=== PATIENT | male | born 1935 | race Caucasian/White ===

== ENCOUNTER 2017-03-02 15:15 | Outpatient (CLI) | END 2017-03-02 15:16 | disposition short-term general hospital (02) | LOC: AMBL 15:15 | PROVIDERS: ATTEND Internal Medicine Geriatric Medicine | DX: R50.9 Fever, unspecified (principal); R05 Cough; R06.9 Unspecified abnormalities of breathing; R41.0 Disorientation, unspecified; R40.2411 Glasgow coma scale score 13-15, in the field [EMT or ambulance] ==

== ENCOUNTER 2017-04-11 17:44 | Outpatient (CLI) | END 2017-04-11 17:45 | disposition home or self-care (01) | LOC: NONPT 17:44 | PROVIDERS: ATTEND Emergency Medicine | DX: R68.89 Other general symptoms and signs (principal) | CPT/HCPCS: 87502 ==

== ENCOUNTER 2017-05-08 14:16 | Inpatient (IN) ==
[2017-05-08 14:34] VITALS: BMI 29.7
--- NOTE | 2017-05-08 15:54 | CT ---
EXAM: CT chest without contrast. HISTORY: Cough, fever. COMPARISON: None available. TECHNIQUE: Multiple axial images of the chest were obtained without intravenous contrast. Images we re reformatted in the sagittal and coronal planes. FINDINGS: Left-sided electronic cardiac device is present. Calcified and noncalcified mediastinal l ymph nodes are present most which demonstrate fatty yaya. Evaluation for hilar lymphadenopathy is li mited by lack of intravenous contrast. There has been previous sternotomy. Atherosclerotic calcific ations are present. No pericardial effusion identified. Heart is mildly enlarged. Nodular densities present throughout both lungs with more coalescent consolidation in the left lower lobe and to a lesser extent the right lower lobe. No pleural effusion or pneumothorax. Limited images of the upper abdomen demonstrate cholelithiasis and mild gallbladder distension. Flui d density lesions in both kidneys measure up to 3.2 cm on the right and 6.7 cm on the left. Degenerative changes present throughout the spine as well as in the shoulders. Minimal superior endp late compression deformity of T8 is age indeterminate. IMPRESSION: Bilateral nodular densities with coalescent left greater than right lower lobe consolidation, consist ent with pneumonia. Follow-up CT in 4-6 weeks after appropriate therapy recommended for reassessment .
--- NOTE | 2017-05-08 16:29 | ED.PDOC ---
General ED Provider: Dr. EMILEE IYER Chief Complaint: Fever Stated Complaint: fever , cough Time Seen by Physician: 14:30 Information Source: Fdc, EMT Exam Limitations: No limitations Primary Care Provider: JACQUELINE THOMPSONElvia Nursing and Triage Documentation Reviewed and Agree: Yes Reviewed sepsis parameters & appropriate labs ordered?: Yes System Inflammatory Response Syndrome: Not Applicable Sepsis Protocol: For patient's 13 years and over: Temp is 96.8 and below OR 101 and greater Pulse >90 BPM Resp >20/minute Acutely Altered Mental Status Are patient's symptoms suggestive of a new infection, such as: -Pneumonia -Skin, Soft Tissue -Endocarditis -UTI -Bone, Joint Infection -Implantable Device -Acute Abdominal Infection -Wound Infection -Meningitis -Blood Stream Catheter Infection -Unknown System Inflammatory Response Syndrome: Not Applicable Respiratory Complaint Exam - Respiratory Complaint/Exam Onset/Duration: cough fever x 1 day Symptoms Are: Still present Timing: Intermittent Initial Severity: Moderate Current Severity: Moderate Location: Chest Character: Reports: Productive cough Aggravating: Reports: None Alleviating: Reports: None Associated Signs and Symptoms: Reports: Rapid breathing, Fever, Chills, URI, Nasal congestion. Denies: Dyspnea, Chest pain, Pleuritic chest pain, Wheezing, Hemoptysis, Dizziness, Calf pain, Calf swelling, Edema, Hoarseness, Sinus discomfort, Vomiting, Sore throat, Weight loss, Decreased oral intake, Increased thirst, Increased appetite, Increased urination Related History: Reports: Similar episode History of Healthcare-Acquired Pneumonia: No Related Surgical History: Reports: None Pulmonary Embolism Risk Factors: Bedrest Pseudomonas Risk Factors: Reports: Chronic Lung Disease Tuberculosis Risk Factors: Reports: Communal living, Chronic Resp. Faliure Status Asthmaticus Risk Factors: Reports: None Home Oxygen Use: No Recent Stress Test: No Recent Echo/LV Function: No Current Antibiotic Use: No Current Asthma Medication Use: No Inadequate Respiratory Effort: No Dysphagia Present: No Stridor Present: No JVD Present: No Accessory Muscle Use: No Retractions: Not Present Diminished Breath Sounds: No Sinus Tenderness: None Grunting Respirations: No Differential Diagnoses: CHF, Pulmonary Edema, COPD Exacerbation, Pneumonia, Influenza, Lower Resp. Infection Review of Systems - Review Of Systems Constitutional: Reports: Fever, Malaise Eyes: Reports: No symptoms Ears, Nose, Mouth, Throat: Reports: No symptoms Respiratory: Reports: Cough Cardiac: Reports: No symptoms GI: Reports: No symptoms : Reports: No symptoms Musculoskeletal: Reports: No symptoms Skin: Reports: No symptoms Neurological: Reports: No symptoms Endocrine: Reports: No symptoms Hematologic/Lymphatic: Reports: No symptoms All Other Systems: Reviewed and Negative Past Medical History - Past Medical History Previously Healthy: No Endocrine: Reports: Dyslipidemia Cardiovascular: Reports: Hypertension Respiratory: Reports: COPD Hematological: Reports: None Gastrointestinal: Reports: None Genitourinary: Reports: None Neuro/Psych: Reports: None Musculoskeletal: Reports: None Cancer: Reports: None - Surgical History General Surgical History: Reports: None - Family History Family History: Reports: None - Social History Smoking Status: Unknown if ever smoked Hx Substance Use: Yes Alcohol Screening: None Physical Exam - Physical Exam Appearance: Ill-appearing Ill-appearing: Moderate Pain Distress: Mild Eyes: ANGEL, EOMI, Conjunctiva clear ENT: Ears normal, Nose normal, Dry mucosa Respiratory: Rhonchi Cardiovascular: RRR, Pulses normal, No rub, No murmur GI/: Soft, Nontender, No masses, Bowel sounds normal, No Organomegaly Musculoskeletal: Normal strength, ROM intact, No edema, No calf tenderness Skin: Warm, Dry, Normal color Neurological: Sensation intact, Motor intact, Reflexes intact, Cranial nerves intact, Alert, Oriented Psychiatric: Affect appropriate, Mood appropriate Physician Notification - Case Discussed Physician Notified: pmd Time of Notification: 16:29 Admit To: Inpatient Critical Care Note - Critical Care Note Total Time (mins): 0 Course - Course Hematology/Chemistry: 05/08/17 15:15 Orders, Labs, Meds: Lab Review 05/08/17 05/08/17 14:55 15:15 WBC 8.87 RBC 4.29 L Hgb 11.7 L Hct 35.7 L MCV 83.2 MCH 27.3 MCHC 32.8 RDW Coeff of Juan 15.6 H Plt Count 124 L Immature Gran % (Auto) 0.2 Neut % (Auto) 73.6 Lymph % (Auto) 13.9 [place] % (Auto) 12.0 H Eos % (Auto) 0.0 Baso % (Auto) 0.3 Immature Gran # (Auto) 0.0 Neut # (Auto) 6.5 Lymph # (Auto) 1.2 [place] # (Auto) 1.1 Eos # (Auto) 0.0 Baso # (Auto) 0.0 Influ A Molecular Assay Negative by naat Influ B Molecular Assay Negative by naat Orders Category Date Time Status EKG-(ED ONLY) Stat CARDIO 05/08/17 14:49 Completed ACTIVITY .Complete BR CARE 05/08/17 16:25 Ordered INCISION/WOUND CARE Q6HR CARE 05/08/17 16:25 Ordered INTAKE & OUTPUT Q8HR CARE 05/08/17 16:25 Ordered BLOOD CULTURE (ED ONLY) Stat LAB 05/08/17 15:15 Received CBC W/ AUTO DIFF DAILY@0600 LAB 05/09/17 06:00 Ordered CBC W/ AUTO DIFF DAILY@0600 LAB 05/10/17 06:00 Ordered CBC W/ AUTO DIFF Stat LAB 05/08/17 15:15 Completed COMPREHENSIVE METABOLIC PANEL DAILY@0600 LAB 05/09/17 06:00 Ordered COMPREHENSIVE METABOLIC PANEL DAILY@0600 LAB 05/10/17 06:00 Ordered COMPREHENSIVE METABOLIC PANEL Stat LAB 05/08/17 15:15 Received FLU A/B MOLECULAR Stat LAB 05/08/17 14:55 Completed MOLECULAR GROUP A STREP Stat LAB 05/08/17 14:55 Completed PROCALCITONIN Stat LAB 05/08/17 15:15 Received URINALYSIS C & S IF INDICATED Stat LAB 05/08/17 14:48 Uncollected Acetaminophen [Tylenol] MEDS 05/08/17 16:24 Ordered 650 mg PO Q4H PRN Ceftriaxone Sodium [Rocephin] 1 gm MEDS 05/09/17 09:00 Ordered 0.9 % Sodium Chloride [Sodium Chloride] 50 ml IV DAILY Dronedarone HCl [Multaq] MEDS 05/09/17 09:00 Ordered 400 mg PO DAILY Furosemide [Lasix Tab] MEDS 05/09/17 09:00 Ordered 20 mg PO DAILY Lisinopril [Zestril] MEDS 05/09/17 09:00 Ordered 10 mg PO DAILY Loperamide HCl [Loperamide] MEDS 05/09/17 09:00 Ordered 2 mg PO DAILY Metoprolol Tartrate [Lopressor] MEDS 05/08/17 21:00 Ordered 50 mg PO BID Mupirocin [Bactroban Ointment 1 Gram Applicator (ER)] MEDS 05/08/17 21:00 Ordered 1 gm TP BID Potassium Chloride [Potassium Chloride] MEDS 05/09/17 09:00 Ordered 20 meq PO DAILY Pravastatin Sodium [Pravachol] MEDS 05/09/17 09:00 Ordered 20 mg PO DAILY Sodium Chloride 0.9% [Sodium Chloride] 1,000 ml MEDS 05/08/17 16:30 Ordered IV 75 mls/hr CT CHEST W/O CONTRAST Stat RADS 05/08/17 14:49 Completed Medications Generic Name Dose Route Start Last Admin Trade Name Freq PRN Reason Stop Dose Admin Acetaminophen 650 mg 05/08/17 16:24 Tylenol PO Q4H PRN Fever >101 Furosemide 20 mg 05/09/17 09:00 Lasix Tab PO DAILY [facility] Lisinopril 10 mg 05/09/17 09:00 Zestril PO DAILY [facility] Metoprolol Tartrate 50 mg 05/08/17 21:00 Lopressor PO BID [facility] Mupirocin 1 gm 05/08/17 21:00 Bactroban Ointment 1 Gram Applicator (Er) TP BID MAYELIN Non-Formulary Medication 400 mg 05/09/17 09:00 Dronedarone Hcl [Multaq] PO DAILY MAYELIN Non-Formulary Medication 20 meq 05/09/17 09:00 Potassium Chloride [Potassium Chloride] PO DAILY MAYELIN Non-Formulary Medication 2 mg 05/09/17 09:00 Loperamide Hcl [Loperamide] PO DAILY [facility] Pravastatin Sodium 20 mg 05/09/17 09:00 Pravachol PO DAILY [facility] Vital Signs: Temp Pulse Resp BP Pulse Ox 05/08/17 14:21 100.7 F H 84 20 136/70 96 Departure - Departure Time of Disposition: 16:29 Disposition: ADMITTED INPATIENT Discharge Problem: Fever Pneumonia Qualifiers: Pneumonia type: due to unspecified organism Laterality: right Lung location: lower lobe of lung Qualified Code(s): J18.1 - Lobar pneumonia, unspecified organism Condition: Good Pt referred to PMD for follow-up: Yes IPMP verified?: No Allergies/Adverse Reactions: Allergies Penicillins Adverse Reaction (Verified 05/08/17 15:04) sulfamethoxazole [From Bactrim] Adverse Reaction (Verified 05/08/17 15:04) trimethoprim [From Bactrim] Adverse Reaction (Verified 05/08/17 15:04) Home Medications: Ambulatory Orders Acetaminophen [Tylenol] 650 mg PO Q4H PRN 05/08/17 Donepezil HCl [Aricept] 10 mg PO DAILY 05/08/17 Dronedarone HCl [Multaq] 400 mg PO DAILY 05/08/17 Furosemide [Lasix] 20 mg PO DAILY 05/08/17 Lisinopril [Zestril] 10 mg PO DAILY 05/08/17 Loperamide HCl [Loperamide] 2 mg PO DAILY 05/08/17 Memantine HCl [Namenda] 10 mg PO BID 05/08/17 Metoprolol Tartrate [Lopressor] 50 mg PO BID 05/08/17 Mupirocin [Bactroban Ointment 1 Gram Applicator (ER)] 1 gm TP BID 05/08/17 Potassium Chloride 20 meq PO DAILY 05/08/17 Pravastatin Sodium [Pravachol] 20 mg PO DAILY 05/08/17
[2017-05-08] MEDS ORDERED: ROCEPHIN 1 GM in SODIUM CHLORIDE 50 ML IV STA (16:59)
[2017-05-08] MEDS ORDERED: ROCEPHIN ONE (17:17)
[2017-05-08] MEDS: SODIUM CHLORIDE 1,000 ML IV SCH (17:30)
[2017-05-08] MEDS: TYLENOL PO PRN (22:07)
[2017-05-08] MEDS: LOPRESSOR PO SCH (22:07)
[2017-05-08] MEDS: BACTROBAN TP SCH (22:07)
[2017-05-08] MEDS: DUONEB NEB SCH (22:38)
[2017-05-09] MEDS ORDERED: LASIX IVP STA (02:01)
[2017-05-09] MEDS: DUONEB NEB SCH ×4 (04:36→22:30)
[2017-05-09] MEDS: TYLENOL PO PRN ×2 (05:19→15:00)
[2017-05-09] MEDS: LASIX TAB PO SCH (05:38)
[2017-05-09] MEDS: SODIUM CHLORIDE 1,000 ML IV SCH ×2 (07:37→10:45)
[2017-05-09] MEDS: BACTROBAN TP SCH ×2 (08:42→20:35)
[2017-05-09] MEDS: IMODIUM PO SCH (08:42)
[2017-05-09] MEDS: LOPRESSOR PO SCH ×2 (08:43→20:36)
[2017-05-09] MEDS: ZESTRIL PO SCH (08:43)
[2017-05-09] MEDS: MULTAQ PO SCH (08:43)
[2017-05-09] MEDS: K-DUR PO SCH (08:43)
[2017-05-09] MEDS: PRAVACHOL PO SCH (08:43)
[2017-05-09] MEDS: MUCINEX PO SCH ×2 (08:44→20:36)
[2017-05-09] MEDS: VANCOMYCIN 750 MG in SODIUM CHLORIDE 250 ML IV SCH ×2 (08:44→20:35)
[2017-05-09] MEDS ORDERED: NON-FORMULARY MEDICATION (Loperamide Hcl [Loperamide] 2 MG) PO SCH (09:00)
[2017-05-09] MEDS ORDERED: VANCOMYCIN 1 GM in SODIUM CHLORIDE 250 ML IV SCH (09:00)
[2017-05-09] MEDS ORDERED: ROCEPHIN 1 GM in SODIUM CHLORIDE 50 ML IV SCH (09:00)
[2017-05-09] MEDS ORDERED: DRONEDARONE HCL 400 MG PO SCH (09:00)
[2017-05-09] MEDS ORDERED: NON-FORMULARY MEDICATION (Potassium Chloride [Potassium Chloride] 20 MEQ) PO SCH (09:00)
--- NOTE | 2017-05-09 10:20 | RS.BEDDYS ---
Subjective Number of treatment sessions: 1 Date of Evaluation: 05/09/17 Treatment Diagnosis: pnuemonia Current Level of Function: This 82 year old male presents with Alzheimers and pneumonia. Pt has a hx of swallowing difficulty. Currently, pt has chest congestion and coughing at the bedside. Pt is at risk for aspiration and/or penetration. Current Diet: regular with thin liquids. Current Subjective/complaints:: Pt is a poor historian and cannot answer open- ended questions. When asked yes/no questions he answered inconsistently. Nursing reported pt coughing at the bedside. TECHNICAL SERVICES SPECIALIST noted pt without a productive cough. Medical History Comments:: pneumonia, swallowing difficulty. Patient's Goals: TECHNICAL SERVICES SPECIALIST to place pt on safest and least restrictive diet texture. General Information - General Denture Type: Full- Upper Patient Orientation: Person Ability to Follow Directions: Fair - Voice Voice Quality: Breathy Oral-Facial Assessment - Dental/Labial Lips Comment: No lip movement on command. Adequate labial seal with straw - Lingual Comments: No lingual control on command. - Comments/Additional Info. Comments:: Complete oral-motor examination was not completed due to pt's mental status. Food Presentation - Solids Food Presented: Mechanical Soft (1/2 teaspoon bite) Behaviors/Comments: Emesis of food partially masticated. Pt demonstrates functional oral sensation. Food Presented: Pureed (1 teaspoon.) Behaviors/Comments: Pt had adequate labial seal and clearnace of food texture. Mild-moderate swallow delay. no overt s/s of aspiration. - Liquids Liquid Presented: Thin (via straw) Behaviors/Comments: Overt coughing and wet gurgly voice. Immediate cough and throat clear. Liquid Presented: [place] (via straw) Behaviors/Comments: 1x throat clear. - Recommendations: Dysphagia Evaluation Dietary Recommendations: Dysphagia Pureed, [place]-thick liquids Comments:: Monitor pt with diet texture and liquids. Continue to monitor s/s of aspiration. No thin liquids at the bedside or between meals. Dysphagia Swallow Precautions/Strategies: Sitting Upright (90 deg), Small Bites and Sips, Alternate Liquids/Solids Comments:: Pt to have 1:1 supervision and assistance with feeding. Monitor for increased chest congestion. All medications crushed in pudding/applesauce. - Summary Dysphagia Evaluation Summary: Pt presents with oropharyngeal dysphagia as characterized by moderate delay in swallow initation and moderate difficulty with acceptance of mechanical soft diet texture. Pt at risk for aspiration/ penetration with food and liquids. Further Therapy Indicated?: Yes Comments: Therapy to monitor safest and least restrictive diet texture. Rehab Potential: Fair Functional Reporting G Codes: Swallowing Current CL Goal CK Severity Impairment Rationale: Puree diet texture with nectar thick liquids. Short Term Goals Problem: Swallowing Goal #1: Pt to swallow puree diet without overt s/s of aspiration Goal to be met by: 05/13/17 Problem: Swallow delay Goal #2: 10 trials of lingual thermal/tactile stimulation with 2 second delay Goal to be met by: 05/13/17 Problem: Swallowing Goal #3: No overt s/s of aspiration with 5/5 thin liquid trials. Goal to be met by: 05/13/17 Detention Goals Problem: Swallowing Goal #1: Consume safest and least restrictive diet texture Goal to be met by: 05/13/17 Plan Duration of Treatment: 1 Week Frequency of Treatment: 2-3x week Anticipated Discharge Destination: Detention Care Facility Comments: TECHNICAL SERVICES SPECIALIST recommends a dysphagia swallow study with x-ray to determine safest and least restrictive diet texture. - Treatment Code (1) Oropharyngeal dysphagia Code(s): R13.12 - DYSPHAGIA, OROPHARYNGEAL PHASE
[2017-05-09] MEDS: ARICEPT PO SCH (10:28)
[2017-05-09] MEDS: NAMENDA PO SCH ×2 (10:29→20:36)
[2017-05-09] MEDS: ZOSYN 3.375 GM 3.375 GM in SODIUM CHLORIDE 50 ML IV SCH ×3 (12:08→23:58)
[2017-05-09] MEDS: CALMOSEPTINE OINTMENT TP PRN (20:35)
[2017-05-10] MEDS: TYLENOL PO PRN (02:50)
[2017-05-10] MEDS: CALMOSEPTINE OINTMENT TP PRN ×2 (02:51→18:32)
[2017-05-10] MEDS: SODIUM CHLORIDE 1,000 ML IV SCH ×2 (02:59→10:50)
[2017-05-10] MEDS: DUONEB NEB SCH ×4 (04:33→23:35)
[2017-05-10] MEDS: LASIX TAB PO SCH (05:51)
[2017-05-10] MEDS: ZOSYN 3.375 GM 3.375 GM in SODIUM CHLORIDE 50 ML IV SCH ×4 (05:51→23:05)
--- NOTE | 2017-05-10 09:00 | HP ---
DATE OF SERVICE: 05/08/17 CHIEF COMPLAINT: Fever, chills, cough and congestion. HISTORY OF PRESENT ILLNESS: This is an 82-year-old male with history of stroke, bedridden, Alzheimer's dementia, no stroke only dementia and bedridden with generalized weakness. He was at the long term and began having fever, cough and congestion. Fever went up to 103. I was called and the patient was transferred to [facility] for evaluation. Temperature in the emergency room was 100.7, white count normal. BUN 22, creatinine 1.35. CT of the chest showed bibasilar pneumonia. At that time, the patient was admitted to the hospital for IV antibiotics, breathing treatments and IV fluids. REVIEW OF SYSTEMS: CONSTITUTIONAL: Weakness, tiredness. No fever, no chills. HEENT: Normal. ENDOCRINE: No weight gain; no weight loss. CVS: No chest pain. No PND, no orthopnea. Shortness of breath. No PND, no orthopnea. RESPIRATORY: Cough and congestion. No hemoptysis. GI: No nausea, no vomiting. No abdominal pain. No melena. : No hematuria. No polyuria. MUSCULOSKELETAL: No joint swelling. PSYCHIATRIC: Not anxious. No depression. No suicidal thoughts. No homicidal thoughts. SKIN: Intact, no open lesions. PAST MEDICAL HISTORY: Atrial fibrillation CHF Permanent pacemaker Hypertension Leg edema Alzheimer's dementia COPD Osteoarthritis DJD spine PAST SURGICAL HISTORY: None PERSONAL HISTORY: Dependent upon ADLS. Lives at long term. FAMILY HISTORY: Significant for hypertension. MEDICATIONS: ([facility]) Pravastatin Potassium Namenda Multaq Loperamide Zestril Lasix Aricept Lopressor Bactroban ointment ALLERGIES: PENICILLIN, BACTRIM, TRIMETHOPRIM PHYSICAL EXAMINATION: V/S: BP 136/70, respiratory rate 20, heart rate 84, temperature 97, temperature 100.7, saturation 96. GENERAL: The patient is a sick looking male, lying in bed in no distress. HEENT: Atraumatic, normocephalic. No scleral icterus. Pallor positive. Mucosa dry. NECK: Supple. No JVD, no bruit. No lymphadenopathy. No thyromegaly. HEART: S1, S2 normal. No murmur. No cyanosis or clubbing. No ascites. LUNGS: Basilar crackles. No rales or rhonchi. ABDOMEN: Soft, nontender. Bowel sounds are active. No CVA tenderness. No rigidity or guarding. EXTREMITIES: No pedal edema. No cyanosis or clubbing MUSCULOSKELETAL: Normal joints, no swelling. NEUROLOGIC: The patient is very hard of hearing. Stiffness in the lower and upper extremity but did not test motor strength. SKIN: Intact; no open lesions. LYMPHATIC: No lymph nodes palpable. LABS: Sodium 142, potassium 4.1, chloride 106, bicarb 21, BUN 22, creatinine 1.35. White count 8.87, hemoglobin 11.7, hematocrit 35.1, platelet count 124. ASSESSMENT: 1. PNEUMONIA 2. FEVER SECONDARY TO BASILAR PNEUMONIA 3. ANEMIA 4. HYPERTENSION 5. ATRIAL FIBRILLATION 6. CHF 7. ALZHEIMER'S DEMENTIA PLAN: 1. Admit patient to the regular floor 2. CBC, CMP today and daily 3. Cardiac enzymes and troponin 4. IV fluids 5. Rocephin 1 gm daily 6. Duonebs 7. Vancomycin 8. Daily I & O's TIME SPENT: MORE THAN 75 minutes for admission [facility]
[2017-05-10] MEDS: VANCOMYCIN 750 MG in SODIUM CHLORIDE 250 ML IV SCH ×2 (09:52→20:41)
[2017-05-10] MEDS: ARICEPT PO SCH (09:52)
[2017-05-10] MEDS: MULTAQ PO SCH (09:52)
[2017-05-10] MEDS: IMODIUM PO SCH (09:53)
[2017-05-10] MEDS: LOPRESSOR PO SCH ×2 (09:53→20:41)
[2017-05-10] MEDS: NAMENDA PO SCH ×2 (09:53→20:42)
[2017-05-10] MEDS: MUCINEX PO SCH ×2 (09:53→20:42)
[2017-05-10] MEDS: K-DUR PO SCH (09:53)
[2017-05-10] MEDS: BACTROBAN TP SCH ×2 (09:54→20:41)
[2017-05-10] MEDS: PRAVACHOL PO SCH (09:54)
[2017-05-10] MEDS: ZESTRIL PO SCH (09:54)
--- NOTE | 2017-05-10 13:50 | DI ---
EXAM: Modified barium swallow. History: Difficulty swallowing, choking Technique: Lateral video fluoroscopy was performed in conjunction with speech therapy using multiple consistencies to evaluate swallowing function. Findings / impression: Aspiration was observed with thin liquids and patient demonstrated coughing a fter the aspiration. There was probably aspiration with the other more solid consistencies. Please s ee dedicated speech pathology report for additional details.
--- NOTE | 2017-05-10 14:20 | CT ---
EXAM: CT of the abdomen pelvis without contrast History: Abdominal pain. Comparison: Chest CT 05/08/2017 Technique: Multiplanar CT images through the abdomen pelvis were obtained without the administration of IV contrast Findings: Bibasilar consolidation and worse in the left lower lobe. Coronary calcifications and mild cardiomegaly. No acute osseous abnormalities. Ankylosing spondylitis of the spine and sacroiliac elda ints. Cholelithiasis. Atherosclerotic vascular calcifications. No focal liver or splenic lesions. No antony l stones and no hydronephrosis. Bilateral renal cysts measuring up to 3 cm on the right and 6 cm on the left. No peripancreatic inflammation. Adrenal glands are unremarkable. No bowel obstruction. 9 mm hyperdensity within the bladder near the right UVJ. Prostatic seeds. There is fluid seen withi n the rectosigmoid colon. No perirectal inflammation. No free air and no ascites. No lymphadenopat hy. Impression: 1. Cholelithiasis. 2. 9 mm hyperdensity within the bladder near the right UVJ could represent a bladder stone versus foc us of intraluminal bladder hemorrhage. 3. Bilateral renal cysts. 4. Bibasilar pneumonia.
--- NOTE | 2017-05-10 15:39 | RS.MODBRM ---
Subjective Number of treatment sessions: 1 Date of Evaluation: 05/10/17 Treatment Diagnosis: pneumonia, swallowing difficulty Current Level of Function: This 82 year old male presents with advanced Alzheimers disease. At time of the MBSS, pt was lethargic. Pt has a hx of swallowing difficulty and pneumonia. Pt was on a puree diet texture with nectar thick liquids. Pt's family reported sips of thin liquids between meals had been administered. Pt has a high risk for aspiration/penetration with thin liquids due to overt coughing at the bedside. Current Diet: Puree diet with nectar thick liquids. Medications crushed in applesauce/pudding. Current Subjective/complaints:: Pt did not verbalize any symptoms of pain, however pt was moaning and stating "stop" when SQL SERVER CONSULTANT and x-ray tech postioned pt in dysphagia chair. Pt did not locate pain when asked, however pain signs were noted with furrowed eye brows and flinching, as well as verbal moaning when pt was positioned in an upright sitting chair. SQL SERVER CONSULTANT also noted pt with pale complexion, which was compared to his complexion yesterday this date. Pt was also hot to touch, indicating possible fever. Medical History Comments:: Pneumonia and difficulty swallowing. Food Presented Thin Liquid: spoon (1/2 teaspoon. Premature spillage to valleculae, over tip of valleculae, and pyriform sinuses. Aspiration pre-swallow with immediate cough response and during swallow. 1 minute active coughing/recovery period.) [place] Liquid: spoon (1/2 teaspoon. Immediately feel to valleculae and over tip to UES opening. Pooled at UES with no swallow response. Tactile stimulation provided on laryngeal area and BOT, which did not initiate swallow response. Liquids trailed to laryngeal vestibule and penetrated with initiation of swallow. Pt inhaled deeply and then aspirated. Overt coughing response to aspiration with 2 minute active recovery.) Honey Liquid: spoon (3/4 teaspoon. Poor control with BOT, premature spillage to valleculae, over tip, to pyriform sinuses and initiation of swallow was noted. residuals into laryngeal vestibule and penetration with initiation of first swallow. Aspiration post swallow on residuals in valleculae and laryngeal vesibules. Overt coughing with aspiration and 1-2 minute recovery period.) Oral Phase - Oral Phase Labial Closure: WFL Bolus Formation: Mild Impairment Lingual Movement: Moderate Impairment A/P Propulsion: Severe Impairment Premature Vallecular Pooling: Moderate Oral Residue: Mild Comments:: Poor control with A-P transfer and BOT. All liquid consistencies with premature spillage to valleculae, over tip of valleculae, pyriform sinuses. Pharyngeal Phase Pharyngeal Response: Moderate Impairment Base of Tongue: Severe Impairment Epiglottic Movement: Severe Impairment Laryngeal Excursion: Moderate Impairment Vallecular Residue: Moderate Pyriform Residue: Moderate Comments:: Pharyngeal phase with severe difficulty with BOT control, however BOT with adequate movement to pharyngeal wall. Epiglottic inversion minimal to no movement. Resulting in moderate-severe residuals in valleculae with nectar thick and honey thick liquids. Pt with penetration pre-swallow on nectar thick and honey thick liquids. Pt with aspiration on nectar thick and honey thick liquids during swallow initiation and post swallow. Initiation of swallow response with moderate-severe delay of 3-8 seconds. Pt with 8 second delay with initiation of a swallow in response to nectar thick trial. Summary and Recommendations - Recommendations PO Diet: Pureed, Pudding-Thick Liquids Comments:: SQL SERVER CONSULTANT did not observe pt with puree diet texture or pudding consistency under x-ray. This was due to patient aspirating thin, nectar, and honey thick consistencies and demonstrating difficulty with recovering from coughing. Pt appeared fatigued as well, and SQL SERVER CONSULTANT did not want to continue anything PO at that time. Pt presents with severe oropharyngeal dysphagia as characterized by BOT control, epiglottic inversion, laryngeal excursion, delay in swallow initiation, poor swallow response with moderate residuals, and penetration/aspiration on thin, nectar, and honey thick liquid consistencies. Pt demonstrated adequate sensation to aspiration with overt coughing. SQL SERVER CONSULTANT recommends pt NPO at this time, due to risk for aspiration on residuals in laryngeal structures. Further Therapy Indicated?: Yes Functional Reporting G Codes: Swallowing current CM Goal CL Severity Impairment Rationale: Puree diet with pudding thick liquids. Aspiration Short Term Goals Problem: Swallowing Goal #1: Pt to swallow puree diet without overt s/s of aspiration Goal to be met by: 05/20/17 Problem: Swallow delay Goal #2: 10 trials of lingual thermal/tactile stimulation with 2-3 second delay Goal to be met by: 05/20/17 Problem: Swallowing Goal #3: No overt s/s of aspiration with 5/5 honey-thick liquid trials. Goal to be met by: 05/20/17 [facility] Goals Problem: Swallowing Goal #1: PO consumption without increased chest congestion. Goal to be met by: 05/20/17 Plan Duration of Treatment: 1 Week Frequency of Treatment: 1-2x aweek Anticipated Discharge Destination: [facility] Comments: Pt with high risk for aspiration/penetration with anything PO due to mentation and awareness of swallow initiation. When pt was alert at the bedside , swallow response was faster, however pt still demonstrated overt s/s of aspiration with all textures presented. SQL SERVER CONSULTANT provided recommendations to MD. ACEVEDO to discuss PO options and nutritional status with family members. - Treatment Code (1) Oropharyngeal dysphagia Code(s): R13.12 - DYSPHAGIA, OROPHARYNGEAL PHASE
[2017-05-10] MEDS ORDERED: DECADRON 4 MG/ML SDV IVP STA (16:57)
[2017-05-10] MEDS ORDERED: TYLENOL RC PRN ×2 (18:06→18:38)
[2017-05-10] MEDS ORDERED: TYLENOL RC ONE ×2 (18:08→18:12)
[2017-05-11] MEDS: DUONEB NEB SCH ×4 (05:20→23:30)
[2017-05-11] MEDS: LASIX TAB PO SCH (05:41)
[2017-05-11] MEDS: ZOSYN 3.375 GM 3.375 GM in SODIUM CHLORIDE 50 ML IV SCH ×4 (05:41→23:20)
[2017-05-11] MEDS: CALMOSEPTINE OINTMENT TP PRN (10:26)
[2017-05-11] MEDS: BACTROBAN TP SCH ×2 (10:27→20:21)
[2017-05-11] MEDS: K-DUR PO SCH (10:27)
[2017-05-11] MEDS: ARICEPT PO SCH (10:27)
[2017-05-11] MEDS: IMODIUM PO SCH (10:27)
[2017-05-11] MEDS: PRAVACHOL PO SCH (10:28)
[2017-05-11] MEDS: VANCOMYCIN 750 MG in SODIUM CHLORIDE 250 ML IV SCH ×2 (10:28→20:22)
[2017-05-11] MEDS: LOPRESSOR PO SCH ×2 (10:28→20:21)
[2017-05-11] MEDS: NAMENDA PO SCH ×2 (10:28→20:22)
[2017-05-11] MEDS: MULTAQ PO SCH (10:28)
[2017-05-11] MEDS: MUCINEX PO SCH ×2 (10:28→20:22)
[2017-05-11] MEDS: ZESTRIL PO SCH (10:29)
[2017-05-11] MEDS: SODIUM CHLORIDE 1,000 ML IV SCH (18:15)
[2017-05-12] MEDS: ZOSYN 3.375 GM 3.375 GM in SODIUM CHLORIDE 50 ML IV SCH ×4 (05:23→23:03)
[2017-05-12] MEDS: LASIX TAB PO SCH (05:30)
[2017-05-12] MEDS: DUONEB NEB SCH ×4 (06:00→23:10)
[2017-05-12] MEDS: VANCOMYCIN 750 MG in SODIUM CHLORIDE 250 ML IV SCH ×2 (09:53→21:11)
[2017-05-12] MEDS: IMODIUM PO SCH (09:54)
[2017-05-12] MEDS: K-DUR PO SCH (09:54)
[2017-05-12] MEDS: BACTROBAN TP SCH ×2 (09:54→21:10)
[2017-05-12] MEDS: ARICEPT PO SCH (09:54)
[2017-05-12] MEDS: NAMENDA PO SCH ×2 (09:55→21:11)
[2017-05-12] MEDS: MULTAQ PO SCH (09:55)
[2017-05-12] MEDS: LOPRESSOR PO SCH ×2 (09:55→21:10)
[2017-05-12] MEDS: MUCINEX PO SCH ×2 (09:55→21:10)
[2017-05-12] MEDS: PRAVACHOL PO SCH (09:56)
[2017-05-12] MEDS: ZESTRIL PO SCH (09:57)
[2017-05-12] MEDS: CALMOSEPTINE OINTMENT TP PRN (21:10)
[2017-05-12] MEDS: SODIUM CHLORIDE 1,000 ML IV SCH (21:11)
[2017-05-13] MEDS: DUONEB NEB SCH ×4 (04:55→23:30)
[2017-05-13] MEDS: ZOSYN 3.375 GM 3.375 GM in SODIUM CHLORIDE 50 ML IV SCH ×4 (05:43→23:26)
[2017-05-13] MEDS: LASIX TAB PO SCH (05:43)
[2017-05-13] MEDS: BACTROBAN TP SCH ×2 (10:09→21:17)
[2017-05-13] MEDS: VANCOMYCIN 750 MG in SODIUM CHLORIDE 250 ML IV SCH ×2 (10:09→21:17)
[2017-05-13] MEDS: CALMOSEPTINE OINTMENT TP PRN (10:10)
[2017-05-13] MEDS: IMODIUM PO SCH (10:10)
[2017-05-13] MEDS: ARICEPT PO SCH (10:10)
[2017-05-13] MEDS: K-DUR PO SCH (10:11)
[2017-05-13] MEDS: MULTAQ PO SCH (10:11)
[2017-05-13] MEDS: MUCINEX PO SCH ×2 (10:11→21:23)
[2017-05-13] MEDS: LOPRESSOR PO SCH ×2 (10:11→21:23)
[2017-05-13] MEDS: PRAVACHOL PO SCH (10:11)
[2017-05-13] MEDS: NAMENDA PO SCH ×2 (10:11→21:23)
[2017-05-13] MEDS: ZESTRIL PO SCH (10:12)
--- NOTE | 2017-05-13 15:04 | RS.DYSPHTX ---
Dysphagia Treatment Note Date of Note: 05/13/17 Visit #: 2 Time of Treatment: 11:45 Subjective: Pt asleep in bed mouth breathing. Severely dry oral cavity with dried blood on lingual tip. Upper dentures in place with residue noted. Pt with incoherent verbalizations. No appropriate responses. Pt cooperative and participated with PHYSICAL MEDICINE SPECIALIST when music and tactile stimulation was provided. PHYSICAL MEDICINE SPECIALIST did not observe congested breath sounds and cough was noted with less congestion. No producitve coughs observed, however pt with strong cough reflex. Total treatment time: 25 - Short Term Goals Goal #1: Pt to swallow puree diet without overt s/s of aspiration Activity/Accuracy: PHYSICAL MEDICINE SPECIALIST presented 1/4 teaspoon puree texture. No swallow initiation completed with max tactile stimulation and cues provided. Pt with gurgly vocal quality noted post trial. No other trials presented. Goal #2: 10 trials of lingual thermal/tactile stimulation with 2-3 second delay Activity/Accuracy: 5 trials of labial ice chip stimulation with labial rounding noted. Lingual stimulation with ice chip with 2/5 trials swallow initiation. Immediate overt cough on all trials. Goal #3: No overt s/s of aspiration with 5/5 honey-thick liquid trials. Activity/Accuracy: N/a - Padder Goals Goal #1: PO consumption without increased chest congestion. Assessment: PHYSICAL MEDICINE SPECIALIST noted pt with poor oral hygiene since last visit. Nursing was notified to increase oral hygiene and oral stimulation. Poor verbal responses to questions and decreased participation in following commands. PHYSICAL MEDICINE SPECIALIST utilized techniques to increase awareness to situation and increase oral awareness to initiate a swallow response. Pt noted with swallow response 3x during session. When given puree trial, no swallow response was initiated. PHYSICAL MEDICINE SPECIALIST does not recommend anything PO without PHYSICAL MEDICINE SPECIALIST to feed pt and use techniques to initate a swallow response. Pt with limited awareness to safely swallow, as well as, decreased oral awareness to initiate a swallow. PHYSICAL MEDICINE SPECIALIST utilized pulse oximetry during trials. No significant changes with O2 sats when coughing noted. Lung sounds monitored pre and post PO trials and RN reported left side more diminished, no crackles or wheezing noted. - Units Charged Swallowing Therapy: 2 - Plan Comments: PHYSICAL MEDICINE SPECIALIST to continue trials with PO. Consult with MD about nutritional needs and PO recommendations. Discuss PO safety with family.
--- NOTE | 2017-05-13 15:12 | RS.DYSPHTX ---
Dysphagia Treatment Note Date of Note: 05/13/17 Visit #: 3 Time of Treatment: 01:45 Subjective: Pt alert sitting up in bed. Pt verbalizing with some coherent words and 2-3 word utterances. No appropriate responses to questions. Pt opened oral cavity on command, completed labial seal around toothettes and oral swabs, and demonstrated labial rounding with ice chip stimulation. Dentures had been removed and oral cavity was clean. However moderate dry skin on inside of lips, which pt winced and moaned in response to toothette stimulation. Total treatment time: 30 - Short Term Goals Goal #1: Pt to swallow puree diet without overt s/s of aspiration Activity/Accuracy: No puree trials this session. Goal #2: 10 trials of lingual thermal/tactile stimulation with 2-3 second delay Activity/Accuracy: 10/10 trials of lingual and labial thermal/sour stimulation completed. Pt had swallow response on 4/10 trials given max cues. Pt had cough with all ice chip stimulation due to no swallow response. Pt's strength includes strong cough reflex. Goal #3: No overt s/s of aspiration with 5/5 honey-thick liquid trials. Activity/Accuracy: 2/2 trials of honey-thick liquids presented. First trial pt with 5 second swallow delay, improvement since last session with 8 second swallow delay. Pt's O2 sats dropped from 99-94. No coughing with first trial, 2x swallow, and minimal vocal quality change. Second trial pt had audible swallow 3x immediate multiple swallows and delayed cough. O2 sats dropped for 97 -94. No auble wheezing or vocal quality change noted. - Technical Sales Manager Goals Goal #1: PO consumption without increased chest congestion. Assessment: SUBGRADE TESTER assessed pt with increased awareness and response to oral stimulation. However, multiple overt s/s of aspiration were noted. Pt does demonstrate a strong cough reflex. Pt still not safe to consume any PO without skilled ST due to multiple overt s/s of aspiration. - Units Charged Swallowing Therapy: 2 - Plan Comments: Continue to monitor lung sounds and complete strict oral care frequently to stimulate swallow response.
--- NOTE | 2017-05-13 16:55 | DI ---
EXAM: Chest one view, frontal view only. HISTORY: Cough. Choking. COMPARISON: CT 05/08/2017. FINDINGS: Left-sided pacemaker again noted along with median sternotomy wires. Cardiac silhouette i s enlarged. There is no vascular congestion. Left basilar consolidation and right perihilar consoli dation are noted with reticulonodular opacities and peribronchial thickening noted throughout the rem ainder of the lungs, probably not significantly changed from prior chest CT. No pleural effusion or pneumothorax identified. No acute osseous abnormalities seen. IMPRESSION: Stable bilateral pneumonia. Continued follow-up is recommended.
[2017-05-14] MEDS: SODIUM CHLORIDE 1,000 ML IV SCH ×2 (05:28→15:26)
[2017-05-14] MEDS: ZOSYN 3.375 GM 3.375 GM in SODIUM CHLORIDE 50 ML IV SCH ×4 (05:29→23:14)
[2017-05-14] MEDS: LASIX TAB PO SCH (05:29)
[2017-05-14] MEDS: DUONEB NEB SCH ×4 (05:35→22:16)
[2017-05-14] MEDS: IMODIUM PO SCH (09:16)
[2017-05-14] MEDS: K-DUR PO SCH (09:16)
[2017-05-14] MEDS: PRAVACHOL PO SCH (09:16)
[2017-05-14] MEDS: NAMENDA PO SCH ×2 (09:16→20:29)
[2017-05-14] MEDS: MULTAQ PO SCH (09:16)
[2017-05-14] MEDS: ARICEPT PO SCH (09:16)
[2017-05-14] MEDS: MUCINEX PO SCH ×2 (09:16→20:29)
[2017-05-14] MEDS: LOPRESSOR PO SCH ×2 (09:16→20:29)
[2017-05-14] MEDS: ZESTRIL PO SCH (09:17)
[2017-05-14] MEDS: BACTROBAN TP SCH ×2 (09:19→20:28)
[2017-05-14] MEDS: VANCOMYCIN 750 MG in SODIUM CHLORIDE 250 ML IV SCH (09:19)
--- NOTE | 2017-05-14 16:51 | DI ---
EXAM: Chest one view HISTORY: Nasogastric tube placement COMPARISON: 05/13/2017 TECHNIQUE: Single view of the chest was performed FINDINGS: Nasogastric tube terminates in the stomach. Left-sided cardiac pacer. Heart is enlarged, unchanged. Mediastinal contour unchanged. No visible pneumothorax. Bilateral infiltrates, similar to mildly improved. IMPRESSION: 1. Nasogastric tube terminates in the stomach. 2. Bilateral infiltrates, similar to mildly improved 3. Cardiomegaly.
[2017-05-14] MEDS: VANCOMYCIN 500 MG in SODIUM CHLORIDE 100 ML IV SCH (20:28)
[2017-05-14] MEDS ORDERED: ATIVAN IVP STA (22:57)
[2017-05-15] MEDS: ATIVAN IVP PRN (02:00)
--- NOTE | 2017-05-15 02:27 | DI ---
Exam: Chest one-view History: Endogastric tube placement Findings / impression: Compared with 05/14/2017. Endogastric tube has been retracted somewhat with the tip still in the stomach but the proximal port just above the gastroesophageal junction level. N o developing pulmonary opacities.
[2017-05-15] MEDS: DUONEB NEB SCH ×4 (04:36→20:00)
[2017-05-15] MEDS: ZOSYN 3.375 GM 3.375 GM in SODIUM CHLORIDE 50 ML IV SCH ×4 (05:02→23:09)
--- NOTE | 2017-05-15 06:59 | PN ---
DATE OF SERVICE: 05/09/17 SUBJECTIVE: The patient is admitted with dehydration, hypertension. The patient's blood pressure is still 90/52, eating good. He is having some dizzy episodes otherwise no chest pain no PND, no orthopnea. REVIEW OF SYSTEMS: CONSTITUTIONAL: Weakness, tiredness. No fever, no chills. HEENT: Normal. ENDOCRINE: No weight gain, no weight loss. CVS: No angina symptoms. No CHF symptoms. No palpitations. No atypical chest pain for CAD. No shortness of breath. No PND, no orthopnea. RESPIRATORY: No cough, no hemoptysis. GI: Appetite is good. No diarrhea. No nausea, no vomiting. No abdominal pain. : No hematuria. No polyuria. SENIOR TRAINER: Dizziness, lightheadedness. MUSCULOSKELETAL: No joint swelling. PSYCHIATRIC: Not anxious. No depression. No suicidal thoughts. No homicidal thoughts. SKIN: Intact. No rash. PHYSICAL EXAMINATION: V/S: BP 90/52, respiratory rate 12, heart rate 50, temperature 97.6, saturation 95%. HEENT: Normocephalic, atraumatic. Mucosa dry. Pallor positive. No icterus. NECK: Supple. No JVD, no carotid bruit. No lymphadenopathy. LUNGS: Bilateral entry is decreased and clear to auscultation. No rales or rhonchi. HEART: S1, S2 normal. No S3. No murmur, gallop or regurgitation. ABDOMEN: Soft, nontender. Bowel sounds active. No rigidity. No rebound or guarding. No CVA tenderness. EXTREMITIES: No pedal edema. No clubbing or cyanosis MUSCULOSKELETAL: No joint swelling. NEUROLOGIC: Awake, alert. No focal deficit. LYMPHATIC: No lymph nodes palpable. SKIN: Intact. LABS: White count 6.19, hemoglobin 10.8, hematocrit 32.0, platelet count 195. Sodium 139, potassium 4.0, chloride 105, bicarb 24, BUN 20, creatinine 1.04, glucose 137. Iron level 24. Stool for occult blood test negative. Valproic acid level is 13. ASSESSMENT: 1. DEHYDRATION 2. GASTROENTERITIS 3. COPD 4. HYPERTENSION 5. NEUROPATHY 6. CVA 7. BIPOLAR DISORDER 8. ARTHRITIS 9. CHRONIC NECK AND BACK PAIN 10. DIVERTICULOSIS PLAN: 1. Continue Duonebs 2. IV fluids 3. Regular diet 4. Continue holding blood pressure medication TIME SPENT: More than 35 minutes MTDD
--- NOTE | 2017-05-15 07:08 | PN ---
DATE OF SERVICE: 05/10/17 SUBJECTIVE: The patient is still coughing, congested, unable to bring up any phlegm. He responds only minimally. He does not verbalize clearly and goes back to sleep. The patient is to be evaluated by the speech therapist. He still has fever and chills. Fever at the highest last night was 102.9 then 100.4. REVIEW OF SYSTEMS: CONSTITUTIONAL: Positive for fever and chills. HEENT: Normal. ENDOCRINE: No weight gain, no weight loss. CVS: No angina symptoms. No CHF symptoms. No palpitations. No atypical chest pain for CAD. No shortness of breath. No PND, no orthopnea. RESPIRATORY: Cough and congestion. No hemoptysis. GI: No nausea, no vomiting. No abdominal pain. : No hematuria. No polyuria. MUSCULOSKELETAL: No joint swelling. PSYCHIATRIC: Not anxious. No depression. No suicidal thoughts. No homicidal thoughts. SKIN: Intact. No rash. PHYSICAL EXAMINATION: V/S: BP 126/71, respiratory rate 12, heart rate 100, temperature 98.2, saturation 96. HEENT: Normocephalic, atraumatic. Mucosa dry, pallor positive. No icterus. NECK: Supple. No JVD, no carotid bruit. No lymphadenopathy. LUNGS: Decreased basilar crackles. HEART: S1, S2 normal. No S3. No murmur, gallop or regurgitation. ABDOMEN: Soft, nontender. Bowel sounds active. No rigidity. No rebound or guarding. No CVA tenderness. EXTREMITIES: No pedal edema. No clubbing or cyanosis. Right heel has a wound. MUSCULOSKELETAL: No joint swelling. NEUROLOGIC: Awake, alert, not oriented to time, place or person. No focal deficit. LYMPHATIC: No lymph nodes palpable. SKIN: Intact. LABS: White count 5.46, hemoglobin 10.4, hematocrit 31.8, platelet count 109. Sodium 142, potassium 4.8, chloride 110, bicarb 20, BUN 26, creatinine 1.30, glucose 112. ASSESSMENT: 1. BIBASILAR PNEUMONIA, COMMUNITY ACQUIRED PNEUMONIA 2. DIFFICULTY SWALLOWING, WILL DO SWALLOW EVALUATION 3. GENERALIZED WEAKNESS 4. VERY HARD OF HEARING 5. HYPERTENSION 6. CAD 7. CHF 8. PERMANENT PACEMAKER 9. ALZHEIMER'S DEMENTIA 10. ATRIAL FIBRILLATION NOT ON ANY BLOOD THINNERS PLAN: 1. Continue Zosyn 2. Continue Vancomycin 3. IV fluids 4. Duonebs 5. Will give 1 cc Decadron today TIME SPENT: More than 35 minutes MTDD
--- NOTE | 2017-05-15 09:07 | PN ---
DATE OF SERVICE: 05/11/17 SUBJECTIVE: The patient is admitted with bilateral basilar pneumonia, facility acquired pneumonia. He is still coughing with congestion. He did have swallow evaluation , was aspirating so questionable aspiration pneumonia is also there. REVIEW OF SYSTEMS: CONSTITUTIONAL: No fever, no chills. HEENT: Normal. ENDOCRINE: No weight gain, no weight loss. CVS: No angina symptoms. No CHF symptoms. No palpitations. No atypical chest pain for CAD. No shortness of breath. No PND, no orthopnea. RESPIRATORY: Cough and congestion. No hemoptysis. GI: No nausea, no vomiting. No abdominal pain. : No hematuria. No polyuria. MUSCULOSKELETAL: No joint swelling. PSYCHIATRIC: Not anxious. No depression. No suicidal thoughts. No homicidal thoughts. SKIN: Intact. No rash. PHYSICAL EXAMINATION: GENERAL: The patient is lying in bed, not in any distress. V/S: BP 102/56, respiratory rate 99, heart rate 24, temperature 98.4, saturation 99 on 2L. HEENT: Normocephalic, atraumatic. Mucosa dry. Pallor positive. NECK: Supple. No JVD, no carotid bruit. No lymphadenopathy. LUNGS: Diffuse basilar crackles and expiratory crackles. HEART: S1, S2 normal. No S3. No murmur, gallop or regurgitation. ABDOMEN: Soft, nontender. Bowel sounds active. No rigidity. No rebound or guarding. No CVA tenderness. EXTREMITIES: No pedal edema. No clubbing or cyanosis. Right heel wound is present which has been taken care of. MUSCULOSKELETAL: No joint swelling. NEUROLOGIC: Awake, alert, does not communicate much. No focal deficit. LYMPHATIC: No lymph nodes palpable. SKIN: Intact. LABS: White count 5.46, hemoglobin 10.4, hematocrit 31.8, platelet count 109. Sodium 142, potassium 3.8, chloride 110, bicarb 20, BUN 26, creatinine 1.30, glucose 112. ASSESSMENT: 1. BIBASILAR PNEUMONIA, FACILITY ACQUIRED 2. RIGHT HEEL ULCER 3. DEMENTIA 4. ANEMIA 5. EDEMA 6. ATRIAL FIBRILLATION NOT ON BLOOD THINNERS BECAUSE OF FREQUENT AND RECURRENT FALLS 7. CHF 8. CAD PLAN: 1. Continue Multag 2. Continue Zosyn 3. Vancomycin 4. IV fluids at 40 mL/hr 5. Duonebs TIME SPENT: More than 35 minutes MTDD
--- NOTE | 2017-05-15 09:21 | PN ---
DATE OF SERVICE: 05/12/17 SUBJECTIVE: The patient verbalizes but cannot comprehend or understand clearly. He is still coughing even with small liquid feedings. The patient is NPO now. Will discuss issue with the family. Congestion is present. No fever, no chills. No PND, no orthopnea. REVIEW OF SYSTEMS: CONSTITUTIONAL: No fever, no chills. HEENT: Normal. ENDOCRINE: No weight gain, no weight loss. CVS: No angina symptoms. No CHF symptoms. No palpitations. No atypical chest pain for CAD. No shortness of breath. No PND, no orthopnea. RESPIRATORY: Cough and congestion. GI: No nausea, no vomiting. No abdominal pain. : No hematuria. No polyuria. MUSCULOSKELETAL: No joint swelling. PSYCHIATRIC: Not anxious. No depression. No suicidal thoughts. No homicidal thoughts. SKIN: Right heel ulcer. PHYSICAL EXAMINATION: V/S: BP 126/69, respiratory rate 16, heart rate 69, temperature 98.4. Saturation 99 on room air. HEENT: Normocephalic, atraumatic. Mucosa dry. Pallor positive. No icterus. NECK: Supple. No JVD, no carotid bruit. No lymphadenopathy. LUNGS: Decreased basilar crackles. Clear to auscultation. No rales or rhonchi. HEART: S1, S2 normal. No S3. No murmur, gallop or regurgitation. ABDOMEN: Soft, nontender. Bowel sounds active. No rigidity. No rebound or guarding. No CVA tenderness. EXTREMITIES: No pedal edema. No clubbing or cyanosis. Right heel ulcer is present. MUSCULOSKELETAL: No joint swelling. NEUROLOGIC: Awake, alert; does not communicate much. No focal deficit. LYMPHATIC: No lymph nodes palpable. SKIN: Intact. LABS: White count 5.46, hemoglobin 10.4, hematocrit 31.8, platelet count 109. Sodium 142, potassium 3.8, chloride 110, bicarb 20, BUN 26, creatinine 1.30, glucose 112. ASSESSMENT: 1. Bibasilar pneumonia, aspiration pneumonia 2. Right heel ulcer 3. Atrial fibrillation, not on any blood thinner because of the frequent falls 4. CAD 5. CHF 6. Alzheimer's dementia PLAN: 1. Continue Zosyn and Vancomycin 2. IV fluids 3. Duonebs TIME SPENT: More than 35 minutes MTDD
--- NOTE | 2017-05-15 09:33 | PN ---
DATE OF SERVICE: 05/13/17 SUBJECTIVE: The patient's son came to me and had a lengthy discussion with him about the swallow evaluation and explained clearly about the problem. During the discussion, the patient's son told me that the patient was living at home a couple of months ago and the patient was walking and talking a little bit and was able to take care of himself. He did have Alzheimer's dementia and urinary tract infection then septic. After that, the patient had a total change in mental status and had to be in the skilled nursing to help him with ambulation and physical therapy. He had problem with swallowing before when he was sick and was in the hospital. The family and the son, who is the power of ip technology transactions attorney, do not have any intention of having a feeding tube placed at this time because the patient's has a feeding tube and they do not want him with a feeding tube. He still has cough and congestion. No fever, no chills. No PND, no orthopnea. REVIEW OF SYSTEMS: CONSTITUTIONAL: No fever, no chills. HEENT: Normal. ENDOCRINE: No weight gain, no weight loss. CVS: No angina symptoms. No CHF symptoms. No palpitations. No atypical chest pain for CAD. No shortness of breath. No PND, no orthopnea. RESPIRATORY: Cough and congestion. No hemoptysis. GI: No nausea, no vomiting. No abdominal pain. : No hematuria. No polyuria. MUSCULOSKELETAL: No joint swelling. PSYCHIATRIC: Not anxious. No depression. No suicidal thoughts. No homicidal thoughts. SKIN: Intact. No rash. PHYSICAL EXAMINATION: V/S: BP 146/87, respiratory rate 24, heart rate 99, temperature 98.8, saturation 96. HEENT: Normocephalic, atraumatic. Mucosa dry. Pallor positive. No icterus. NECK: Supple. No JVD, no carotid bruit. No lymphadenopathy. LUNGS: Decreased basilar crackles. Clear to auscultation. No rales or rhonchi. HEART: S1, S2 normal. No S3. No murmur, gallop or regurgitation. ABDOMEN: Soft, nontender. Bowel sounds active. No rigidity. No rebound or guarding. No CVA tenderness. EXTREMITIES: No pedal edema. No clubbing or cyanosis. Right heel ulcer. MUSCULOSKELETAL: No joint swelling. NEUROLOGIC: Awake, alert. No focal deficit. LYMPHATIC: No lymph nodes palpable. SKIN: Intact. LABS: Sodium 142, potassium 3.8, chloride 110, bicarb 20, BUN 26, creatinine 1.30. White count 5.46, hemoglobin 10.4, hematocrit 31.8, platelet count 109. ASSESSMENT: 1. BIBASILAR PNEUMONIA, ASPIRATION 2. DYSPHAGIA 3. ALZHEIMER'S DEMENTIA 4. CAD 5. CHF 6. ATRIAL FIBRILLATION NOT ON ANY BLOOD THINNERS BECAUSE OF THE RECURRENT FALLS AND HIGH RISK FOR FALL, FAMILY AWARE. PLAN: 1. Zosyn 2. Vancomycin 3. Duonebs 4. Daily I & O's 5. IV fluids TIME SPENT: More than 35 minutes MTDD
[2017-05-15] MEDS: VANCOMYCIN 500 MG in SODIUM CHLORIDE 100 ML IV SCH ×2 (10:29→20:49)
[2017-05-15] MEDS: BACTROBAN TP SCH ×2 (10:30→20:49)
[2017-05-15] MEDS: ARICEPT PO SCH (10:57)
[2017-05-15] MEDS: IMODIUM PO SCH (10:57)
[2017-05-15] MEDS: LOPRESSOR PO SCH ×2 (10:58→20:49)
[2017-05-15] MEDS: ZESTRIL PO SCH (10:58)
[2017-05-15] MEDS: K-DUR PO SCH (10:58)
[2017-05-15] MEDS: MULTAQ PO SCH (10:58)
[2017-05-15] MEDS: MUCINEX PO SCH ×2 (10:58→20:49)
[2017-05-15] MEDS: PRAVACHOL PO SCH (10:58)
[2017-05-15] MEDS: NAMENDA PO SCH ×2 (10:58→20:50)
--- NOTE | 2017-05-15 14:18 | PN ---
DATE OF SERVICE: 05/14/17 SUBJECTIVE: The patient is still coughing and congestion. Not fully awake and alert. Does not respond to commands. The patient's family was agreeable to put NG tube placement and give some nutrition as patient been on NPO and not been eating much. Because every time we are trying to feed him the patient is aspirating. REVIEW OF SYSTEMS: CONSTITUTIONAL: No fever, no chills. HEENT: Normal. ENDOCRINE: No weight gain, no weight loss. CVS: No angina symptoms. No CHF symptoms. No palpitations. No atypical chest pain for CAD. No shortness of breath. No PND, no orthopnea. RESPIRATORY: No cough, no hemoptysis. GI: No nausea, no vomiting. No abdominal pain. : No hematuria. No polyuria. MUSCULOSKELETAL: No joint swelling. PSYCHIATRIC: Not anxious. No depression. No suicidal thoughts. No homicidal thoughts. SKIN: Intact. No rash. PHYSICAL EXAMINATION: V/S: Blood pressure 157/84, respiratory rate 18, heart rate 77, temperature 97.6 with saturation 97%. HEENT: Normocephalic, atraumatic. Mucosa dry. Pallor positive. No icterus. NECK: Supple. No JVD, no carotid bruit. No lymphadenopathy. LUNGS: Decreased and basilar crackles. Clear to auscultation. No rales or rhonchi. HEART: S1, S2 normal. No S3. No murmur, gallop or regurgitation. ABDOMEN: Soft, nontender. Bowel sounds active. No rigidity. No rebound or guarding. No CVA tenderness. EXTREMITIES: No pedal edema. No clubbing or cyanosis. Right heel ulcer. MUSCULOSKELETAL: No joint swelling. NEUROLOGIC: Awake, alert, oriented times three. No focal deficit. LYMPHATIC: No lymph nodes palpable. SKIN: Intact. LABS: WBC 7.59, hgb 10.6, hct 33.5, plt count 163, sodium 159, potassium 3.1, chloride 125, bicarb 25, BUN 31, creatinine 1.30 ASSESSMENT: 1. Hyponatremia 2. Dehydration 3. Acute on chronic renal failure 4. Hypokalemia 5. Bibasilar aspiration pneumonia 6. Persistent pneumonia 7. Coronary artery disease 8. Congestive heart failure 9. Hypertension 10.Atrial fibrillation PLAN: 1. IV fluids 1/2 normal saline 2. Replace the Potassium 3. Zosyn and Vancomycin 4. Daily I&O's TIME SPENT: More than 35 minutes MTDD
[2017-05-15] MEDS: SODIUM CHLORIDE 1,000 ML IV SCH (14:32)
--- NOTE | 2017-05-15 14:43 | RS.DYSPHTX ---
Dysphagia Treatment Note Date of Note: 05/15/17 Time of Treatment: 01:30 Subjective: Pt asleep in bed mouth breathing with congested breath sounds and dried mucous in oral cavity. [id number] ARMOR CREWMAN used hard sternal rub, tactile stimulation, verbalizing and music to arouse pt. Pt did not open eyes, but did demonstrate responses with some vocalizations. Nursing assisted M60A2 ARM[employer] CREWMAN suctioning thick mucous from pts oral cavity. M60A2 ARM[employer] CREWMAN completed strict oral care routine pre and post therapeutic activities. Total treatment time: 45 - Short Term Goals Goal #1: Pt to swallow puree diet without overt s/s of aspiration Goal #2: 10 trials of lingual thermal/tactile stimulation with 2-3 second delay Activity/Accuracy: M60A2 ARMOR CREWMAN stimulated swallow response with ice chips on labial. 10 trials with 3/10 trials lip rounding and 4/10 trials with a swallow response. Swallow initiation with 6-10 seconds post thermal stimulation. Goal #3: No overt s/s of aspiration with 5/5 honey-thick liquid trials. Activity/Accuracy: M60A2 ARMOR CREWMAN coated spoon with honey-thick consistency. M60A2 ARMOR CREWMAN placed spoon midline and pt used labial rounding and cleared consistency from spoon. M60A2 ARMOR CREWMAN used laryngeal palpation and rubbing to stimulate swallow response. Pt swallowed with 6 second delay. Post swallow suspected pooling and residue due to gurgly/wet sound. Pt had a cough response which decreased congested breath sounds. - [facility] Goals Goal #1: PO consumption without increased chest congestion. Assessment: M60A2 ARMOR CREWMAN stimulated faucial pillars with toothette. Pt had swallow response 8 times during session post faucial pillar stimulation and ice chip stimulation. Due to pt's mentation and arousal status, pt is not safe to have any PO unless skilled M60A2 ARMOR CREWMAN present. Pt with severe swallow delay and severe difficulty with swallow response post oral stimulation. Pt with dried secretions , however post oral care, oral cavity with adequate integrity. Congested breath sounds observed frequently. M60A2 ARMOR CREWMAN attributes sounds to pooling secretions in laryngeal area d/t limited swallow responses. Pt at high risk for aspiration with any PO. Pt with poor response for swallowing at this time. M60A2 ARMOR CREWMAN is recommending to continue supplemental nutrition and continue trials of PO when pt's physical health improves. RN to continue monitoring lung sounds and complete frequent strict oral care to stimulate swallow response and reduce bacteria growth in oral cavity. - Units Charged Swallowing Therapy: 3
[2017-05-16] MEDS: ATIVAN IVP PRN (01:54)
[2017-05-16] MEDS: DUONEB NEB SCH ×4 (04:56→21:43)
[2017-05-16] MEDS: ZOSYN 3.375 GM 3.375 GM in SODIUM CHLORIDE 50 ML IV SCH ×2 (05:07→12:44)
[2017-05-16] MEDS ORDERED: ATIVAN IVP PRN (07:30)
--- NOTE | 2017-05-16 09:32 | PN ---
DATE OF SERVICE: 05/15/17 SUBJECTIVE: The patient was a little bit restless in the night time, NG tube was pulled out and patient was not cooperative. Ativan 1mg was given PRN. Marine was the nurse and they reinserted the NG Tube and they are giving the NG tube feeding and the patient is having severe aspiration even with the liquids and solids which this plan was discussed with the patient's power of countersinker, son, as the patient was being in the hospital for the transitional care for the IV antibiotics and for the aspiration pneumonia and bibasilar pneumonia. The patient has been losing weight, this seemed to be important to do so that we can at least given some nutrition to the patient. As the patient's family and the patient's power of countersinker do not want to have a pig tube placed as this mother is also on the pig tube. REVIEW OF SYSTEMS: CONSTITUTIONAL: No fever, no chills. HEENT: Normal. ENDOCRINE: No weight gain, no weight loss. CVS: No angina symptoms. No CHF symptoms. No palpitations. No atypical chest pain for CAD. No shortness of breath. No PND, no orthopnea. RESPIRATORY: Still coughing and having trouble getting the phlegm, no hemoptysis. GI: No nausea, no vomiting. No abdominal pain. : No hematuria. No polyuria. MUSCULOSKELETAL: No joint swelling. PSYCHIATRIC: Not anxious. No depression. No suicidal thoughts. No homicidal thoughts. SKIN: Intact. No rash. PHYSICAL EXAMINATION: V/S: Blood pressure 115/80, respiratory rate 20, heart rate 113, temperature 97.0 and saturation 100% on room air. HEENT: Normocephalic, atraumatic. Mucosa dry. NG tube is in place. NECK: Supple. No JVD, no carotid bruit. No lymphadenopathy. LUNGS: Decreased and basilar crackles. Clear to auscultation. No rales or rhonchi. HEART: S1, S2 normal. No S3. No murmur, gallop or regurgitation. ABDOMEN: Soft, nontender. Bowel sounds active. No rigidity. No rebound or guarding. No CVA tenderness. EXTREMITIES: No pedal edema. No clubbing or cyanosis MUSCULOSKELETAL: No joint swelling. NEUROLOGIC: Response to verbal stimuli and goes back to sleep. No focal deficit. LYMPHATIC: No lymph nodes palpable. SKIN: Intact. Dry except the right heel, there is one ulcer present. LABS: WBC 7.59, hgb 10.6, hct 33.5,plt count 163, sodium 159, potassium 3.1, chloride 125, bicarb 20, BUN 31, creatinine 1.30. Glucose 94. ASSESSMENT: 1. Bibasilar pneumonia 2. Aspiration pneumonia 3. History of aspiration 4. Hypokalemia 5. Hypernatremia 6. Dehydration 7. CAD 8. CHF 9. Atrial fibrillation 10.Alzheimer's Dementia with behavioral changes PLAN: 1. Continue the NG tube at 30ml per hour 2. We are going to watch for the residuals. If the residuals are more than 50ml we will decrease the feedings to 25ml per hour. 3. Nutrition has been consulted for that and patient been given appropriate nutrition per their recommendation 4. Continue Zyvox and Vancomycin and DUO NEBS 5. Daily I&O's 6. Will get CMP today TIME SPENT: More than 35 minutes MTDD
[2017-05-16] MEDS: VANCOMYCIN 500 MG in SODIUM CHLORIDE 100 ML IV SCH (09:43)
[2017-05-16] MEDS ORDERED: ATIVAN ONE (10:01)
[2017-05-16] MEDS: BACTROBAN TP SCH ×2 (10:05→21:11)
--- NOTE | 2017-05-16 12:15 | DI ---
EXAM: CHEST FRONTAL VIEW HISTORY: Nasogastric tube placement. COMPARISON: 05/15/2017 FINDINGS: Nasogastric tube is poorly seen at the level of the abdomen although appears to end minima lly over the left upper abdominal quadrant at about 3 cm lower than the general level of the gastroes ophageal junction. Stable mediastinum. Pacemaker unit. No gross consolidations. IMPRESSION: Nasogastric tube ends minimally over the left upper abdominal quadrant.
[2017-05-16] MEDS: DEXTROSE 5%-WATER IV SOLN 1,000 ML IV SCH (12:43)
[2017-05-16] MEDS: MULTAQ PO SCH (12:47)
[2017-05-16] MEDS: ARICEPT PO SCH (12:47)
[2017-05-16] MEDS: MUCINEX PO SCH ×2 (12:47→21:11)
[2017-05-16] MEDS: NAMENDA PO SCH ×2 (12:48→21:11)
[2017-05-16] MEDS: K-DUR PO SCH (12:48)
[2017-05-16] MEDS: IMODIUM PO SCH (12:49)
[2017-05-16] MEDS: LOPRESSOR PO SCH ×2 (12:49→21:11)
[2017-05-16] MEDS: ZESTRIL PO SCH (12:50)
[2017-05-16] MEDS: PRAVACHOL PO SCH (12:50)
[2017-05-16] MEDS: ZOSYN IV SCH (21:11)
[2017-05-16] MEDS: WATER IV SCH (21:11)
[2017-05-16] MEDS: DEXTROSE 5% IV SCH (21:11)
[2017-05-16] MEDS: FLAGYL PO SCH (21:11)
[2017-05-17] MEDS: DUONEB NEB SCH ×4 (04:36→22:12)
[2017-05-17] MEDS: DEXTROSE 5% IV SCH ×3 (05:24→21:47)
[2017-05-17] MEDS: FLAGYL PO SCH ×3 (05:24→21:47)
[2017-05-17] MEDS: ZOSYN IV SCH ×3 (05:24→21:47)
[2017-05-17] MEDS: WATER IV SCH ×3 (05:24→21:47)
[2017-05-17] MEDS ORDERED: TRANDATE IVP PRN (08:37)
--- NOTE | 2017-05-17 11:00 | RS.DYSPHTX ---
Dysphagia Treatment Note Date of Note: 05/17/17 Time of Treatment: 10:00 Subjective: Pt asleep in bed leaned to left side with mucous on arm and bed sheet. It appeared, Pt had a large productive cough prior to PILL COATER arrival. RN reported suctioning prior to ST session, however pt still with congested breath sounds. PILL COATER attempted another suction, however it was not successful. Complete strict oral care routine was completed pre and post treatment. PILL COATER completed hard sternal rub and consistent verbalization and tactile stimulation to arouse pt. Pt without vocalizations or response to PILL COATER this date. Pt did demonstrate response to oral care and thermal stimulation. No PO trials this date, due to pt 's limited responses and congested sounds. The PILL COATER did not want to increase mucous in throat or risk pt not swallowing PO trials. Pt with decreased swallow responses overall. Total treatment time: 45 - Short Term Goals Goal #1: Pt to swallow puree diet without overt s/s of aspiration Goal #2: 10 trials of lingual thermal/tactile stimulation with 2-3 second delay Activity/Accuracy: PILL COATER presented thermal stimulation to labial and lingual structures. Pt responded with labial rounding and sucking. 2x immediate cough post stimulation. Swallow response average of 5-8 seconds post stimulation. Tactile stimulation with sour swab completed and pt demonstrated improved response time and initation of a swallow. 1x productive cough post stimulation. Goal #3: No overt s/s of aspiration with 5/5 honey-thick liquid trials. - [facility] Goals Goal #1: PO consumption without increased chest congestion. Assessment: PILL COATER assessed pt at the bedside for integrity of swalllow and general health to determine readiness for PO trials. Pt appeared feverish by touch and was noted with flushed cheeks and poor response to tactile stimulation. Pt had no spontaneous swallow responses. Pt did demonstrate 2x cough with oral stimulation, 1x productive cough, and 6 total swallows post tactile/thermal stimulation. PILL COATER does not want pt to have anything PO until alertness level increases and pt demonstrates improved swallow initiation. - Units Charged Swallowing Therapy: 3 - Plan Comments: Continue Strict NPO with oral care routine frequently. Determine supplemental nurtritional needs. Discuss pt's options with family and consult with PILL COATER if needed for assistance with decisions for PO intake.
[2017-05-17] MEDS: ARICEPT PO SCH (11:30)
[2017-05-17] MEDS: LOPRESSOR PO SCH ×2 (11:30→21:47)
[2017-05-17] MEDS: ZESTRIL PO SCH (11:30)
[2017-05-17] MEDS: IMODIUM PO SCH (11:31)
[2017-05-17] MEDS: MULTAQ PO SCH (11:31)
[2017-05-17] MEDS: NAMENDA PO SCH ×2 (11:31→21:47)
[2017-05-17] MEDS: MUCINEX PO SCH ×2 (11:31→21:47)
[2017-05-17] MEDS: K-DUR PO SCH (11:31)
[2017-05-17] MEDS: BACTROBAN TP SCH ×2 (11:32→21:47)
[2017-05-17] MEDS: PRAVACHOL PO SCH (11:32)
[2017-05-17] MEDS: CALMOSEPTINE OINTMENT TP PRN (15:48)
[2017-05-17] MEDS: DEXTROSE 5%-WATER IV SOLN 1,000 ML IV SCH (18:50)
[2017-05-18] MEDS: DEXTROSE 5% IV SCH ×3 (04:20→22:07)
[2017-05-18] MEDS: WATER IV SCH ×3 (04:20→22:07)
[2017-05-18] MEDS: ZOSYN IV SCH ×3 (04:20→22:07)
[2017-05-18] MEDS: DUONEB NEB SCH ×4 (04:37→22:33)
[2017-05-18] MEDS: FLAGYL PO SCH ×3 (05:35→21:32)
[2017-05-18] MEDS: DEXTROSE 5%-WATER IV SOLN 1,000 ML IV SCH (07:00)
[2017-05-18] MEDS: ARICEPT PO SCH (10:54)
[2017-05-18] MEDS: LOPRESSOR PO SCH ×2 (10:54→21:32)
[2017-05-18] MEDS: ZESTRIL PO SCH (10:54)
[2017-05-18] MEDS: MULTAQ PO SCH (10:55)
[2017-05-18] MEDS: PRAVACHOL PO SCH (10:55)
[2017-05-18] MEDS: IMODIUM PO SCH (10:55)
[2017-05-18] MEDS: NAMENDA PO SCH ×2 (10:55→21:32)
[2017-05-18] MEDS: MUCINEX PO SCH ×2 (10:56→21:32)
[2017-05-18] MEDS: K-DUR PO SCH (10:56)
[2017-05-18] MEDS: BACTROBAN TP SCH ×2 (11:17→21:32)
--- NOTE | 2017-05-18 13:02 | CT ---
EXAM: CT scan of the head without contrast HISTORY: Change in mental status TECHNIQUE: Helical imaging of the head was performed without contrast. 5 mm thin axial images and c oronal and sagittal images were provided for interpretation. FINDINGS: The lateral ventricles and cortical sulci are prominent from atrophy. No acute hemorrhage s are seen. There is no mass effect. The basal cisterns are patent. Low density changes are seen w ithin the supratentorial white matter. The paranasal sinuses and mastoid air cells are clear. The c alvarium and extracranial soft tissues are normal. IMPRESSION: No acute intracranial abnormalities are seen. Chronic small vessel ischemic changes seen throughout the supratentorial white matter. Mild cerebral atrophy.
[2017-05-18] MEDS: CALMOSEPTINE OINTMENT TP PRN (13:27)
[2017-05-19] MEDS: DUONEB NEB SCH ×4 (04:35→21:33)
[2017-05-19] MEDS: WATER IV SCH ×3 (05:25→21:35)
[2017-05-19] MEDS: ZOSYN IV SCH ×3 (05:25→21:35)
[2017-05-19] MEDS: DEXTROSE 5% IV SCH ×3 (05:25→21:35)
[2017-05-19] MEDS: FLAGYL PO SCH ×3 (05:26→20:29)
[2017-05-19] MEDS: MULTAQ PO SCH (09:34)
[2017-05-19] MEDS: IMODIUM PO SCH (09:34)
[2017-05-19] MEDS: MUCINEX PO SCH ×2 (09:35→20:30)
[2017-05-19] MEDS: BACTROBAN TP SCH ×2 (09:35→20:29)
[2017-05-19] MEDS: PRAVACHOL PO SCH (09:35)
[2017-05-19] MEDS: ARICEPT PO SCH (09:35)
[2017-05-19] MEDS: ZESTRIL PO SCH (09:35)
[2017-05-19] MEDS: K-DUR PO SCH (09:35)
[2017-05-19] MEDS: LOPRESSOR PO SCH ×2 (09:35→20:30)
[2017-05-19] MEDS: NAMENDA PO SCH ×2 (09:35→20:34)
[2017-05-19] MEDS: CALMOSEPTINE OINTMENT TP PRN (09:36)
[2017-05-19] MEDS: DEXTROSE 5%-WATER IV SOLN 1,000 ML IV SCH (13:52)
[2017-05-20] MEDS: DUONEB NEB SCH ×4 (04:36→20:32)
[2017-05-20] MEDS: ZOSYN IV SCH ×3 (04:56→23:58)
[2017-05-20] MEDS: WATER IV SCH ×3 (04:56→23:58)
[2017-05-20] MEDS: DEXTROSE 5% IV SCH ×3 (04:56→23:58)
[2017-05-20] MEDS: TYLENOL PO PRN ×2 (05:15→22:32)
[2017-05-20] MEDS: FLAGYL PO SCH ×3 (05:15→22:07)
[2017-05-20] MEDS ORDERED: VANCOMYCIN 1,000 MG in SODIUM CHLORIDE 250 ML IV SCH (09:00)
[2017-05-20] MEDS ORDERED: VANCOMYCIN 1 GM in SODIUM CHLORIDE 250 ML IV SCH (09:00)
[2017-05-20] MEDS ORDERED: VANCOMYCIN 750 MG in SODIUM CHLORIDE 250 ML IV SCH (09:00)
[2017-05-20] MEDS: K-DUR PO SCH (09:27)
[2017-05-20] MEDS: IMODIUM PO SCH (09:28)
[2017-05-20] MEDS: LOPRESSOR PO SCH ×2 (09:28→22:07)
[2017-05-20] MEDS: MULTAQ PO SCH (09:29)
[2017-05-20] MEDS: MUCINEX PO SCH ×2 (09:29→22:07)
[2017-05-20] MEDS: NAMENDA PO SCH ×2 (09:30→22:07)
[2017-05-20] MEDS: PRAVACHOL PO SCH (09:30)
[2017-05-20] MEDS: ZESTRIL PO SCH (09:30)
[2017-05-20] MEDS: VANCOMYCIN 750 MG in SODIUM CHLORIDE 250 ML IV SCH ×2 (09:31→21:30)
[2017-05-20] MEDS: ARICEPT PO SCH (09:39)
[2017-05-20] MEDS: CALMOSEPTINE OINTMENT TP PRN ×2 (09:40→21:26)
[2017-05-20] MEDS: BACTROBAN TP SCH ×2 (09:40→21:26)
--- NOTE | 2017-05-20 10:08 | DI ---
EXAM: Single view of the chest. History: Aspiration Comparison: Chest radiograph 05/16/2017 Findings: Heart is enlarged. Pacer device and sternotomy wires. Stable nasogastric tube. Interval development of patchy right lung infiltrates and left lower lobe infiltrate. No appreciable pleural fluid and no pneumothorax. No acute osseous abnormalities. Impression: Interval development of patchy right lung infiltrates and left lower lobe infiltrate cou ld indicate aspiration pneumonia.
--- NOTE | 2017-05-20 12:31 | RS.DYSPHTX ---
Dysphagia Treatment Note Date of Note: 05/20/17 Time of Treatment: 11:45 Subjective: Pt asleep in bed without response to hard steranal rub, verbalizations, or tactile stimulation. Pt's hands and arms appeared swollen. Pt had congested breath sounds and had a weak cough. TECHNICAL SUPPORT COORDINATOR observed pt with poor response to any stimulation presented. Decline in status from last ST visit. Pt' s son was present for ST treatment. TECHNICAL SUPPORT COORDINATOR provided minimal verbal education regarding goals targeted. Son had questions about snf and plan with patient. TECHNICAL SUPPORT COORDINATOR referred questions to case management and for MD to discuss. TECHNICAL SUPPORT COORDINATOR did not answer any direct questions. Total treatment time: 30 - Short Term Goals Goal #1: Pt to swallow puree diet without overt s/s of aspiration Goal #2: 10 trials of lingual thermal/tactile stimulation with 2-3 second delay Activity/Accuracy: TECHNICAL SUPPORT COORDINATOR used ice chips to stimulate labial and lingual surface. No swallow response noted. TECHNICAL SUPPORT COORDINATOR utilized sour swabs to stimulate swallow response. Pt had 1x weak swallow response post sour stimulation to faucial pillars. Pt attempted swallow multiple times without success. Pt had weak cough frequently during oral stimulation. Goal #3: No overt s/s of aspiration with 5/5 honey-thick liquid trials. - [facility] Goals Goal #1: PO consumption without increased chest congestion. Assessment: TECHNICAL SUPPORT COORDINATOR noted pt with decline in general appearance, breath sounds, and swallow response. Pt had decreased labial rounding and sucking patterns when presented swabs. 1x swallow noted over 10 trials of sour, thermal, and tactile stimulation, compared to last visit of 6x swallow response. TECHNICAL SUPPORT COORDINATOR suspects pt with increased chest congestion from secretions pooling and pt with limited to no spontaneous swallowing to protect residuals from aspirating. Pt could be at risk for aspiration with ng-tube as well as on own secretions. TECHNICAL SUPPORT COORDINATOR recommends strict and frequent suctioning, oral care, and tactile stimulation to increase pts' response. TECHNICAL SUPPORT COORDINATOR recommends for pt to remain on strict NPO. - Units Charged Swallowing Therapy: 2 - Plan Comments: Pt has poor prognosis for any PO intake. TECHNICAL SUPPORT COORDINATOR recommends to remain strict NPO due to high risk with aspiration. G-tube placement may not be appropriate due to pt's physical health status. MD to make recommendations for further therapy vs comfort measures at this time.
--- NOTE | 2017-05-20 13:12 | PN ---
DATE OF SERVICE: 05/17/17 SUBJECTIVE: The patient admitted with aspiration pneumonia, been on NG tube for feedings for malnutrition. Still coughing and congested. Responds to the verbal stimuli and goes back to sleep. REVIEW OF SYSTEMS: CONSTITUTIONAL: No fever, no chills. HEENT: Normal. ENDOCRINE: No weight gain, no weight loss. CVS: No angina symptoms. No CHF symptoms. No palpitations. No atypical chest pain for CAD. No shortness of breath. No PND, no orthopnea. RESPIRATORY: No cough, no hemoptysis. GI: No nausea, no vomiting. No abdominal pain. : No hematuria. No polyuria. MUSCULOSKELETAL: No joint swelling. PSYCHIATRIC: Not anxious. No depression. No suicidal thoughts. No homicidal thoughts. SKIN: Intact. No rash. PHYSICAL EXAMINATION: V/S: blood pressure 164/84, respiratory rate 24, heart rate 77 and temperature 98.1 with saturation 100% on 2 liter. HEENT: Normocephalic, atraumatic. Mucosa dry. NECK: Supple. No JVD, no carotid bruit. No lymphadenopathy. LUNGS: Basilar crackles. Clear to auscultation. No rales or rhonchi. HEART: S1, S2 normal. No S3. No murmur, gallop or regurgitation. ABDOMEN: Soft, nontender. Bowel sounds sluggish. No rigidity. No rebound or guarding. No CVA tenderness. EXTREMITIES: No pedal edema. No clubbing or cyanosis MUSCULOSKELETAL: No joint swelling. NEUROLOGIC: Response to the verbal stimuli and goes back to sleep. No focal deficit. LYMPHATIC: No lymph nodes palpable. SKIN: Intact. Dry. Right heel ulcer. LABS: Sodium 161, potassium 3.6, chloride 126, bicarb 24, BUN 22, creatinine 1.28, WBC 11.51, hgb 11.0, hct 35.1 and plt count 208. ASSESSMENT: 1. Severe hypernatremia 2. Aspiration pneumonia bilateral on NG tube feedings 3. Change in mental status 4. Alzheimer's dementia 5. Atrial fibrillation 6. Congestive heart failure PLAN: 1. Invanz 2. Vancomycin 3. DUO NEBS 4. NG tube feedings 5. D5 water 6. IV fluids TIME SPENT: More than 35 minutes MTDD
--- NOTE | 2017-05-20 13:39 | PN ---
DATE OF SERVICE: 05/18/17 SUBJECTIVE: The patient was admitted with bibasilar pneumonia. The patient had severe hypernatremia. Been giving the D5 water which is gradually decreasing the sodium levels. We did change IV fluids with antibiotics and sodium control. Been getting feedings up to now 50ml per hour and minimal residuals. REVIEW OF SYSTEMS: CONSTITUTIONAL: No fever, no chills. HEENT: Normal. ENDOCRINE: No weight gain, no weight loss. CVS: No angina symptoms. No CHF symptoms. No palpitations. No atypical chest pain for CAD. No shortness of breath. No PND, no orthopnea. RESPIRATORY: Coughing and congested, no hemoptysis. GI: No nausea, no vomiting. No abdominal pain. : No hematuria. No polyuria. MUSCULOSKELETAL: No joint swelling. PSYCHIATRIC: Not anxious. No depression. No suicidal thoughts. No homicidal thoughts. Respond to the verbal stimuli and goes back to sleep. SKIN: Intact. No rash. PHYSICAL EXAMINATION: V/S: Blood pressure 148/77, respiratory rate 20, heart rate 76, temperature 99.4 , saturation 99 on 2 liters. HEENT: Normocephalic, atraumatic. Mucosa dry. Pallor positive. no icterus. NECK: Supple. No JVD, no carotid bruit. No lymphadenopathy. LUNGS: Bilateral entry is decreased and basilar crackles. No rales or rhonchi. HEART: S1, S2 normal. No S3. No murmur, gallop or regurgitation. ABDOMEN: Soft, nontender. Bowel sounds active. No rigidity. No rebound or guarding. No CVA tenderness. EXTREMITIES: No pedal edema. No clubbing or cyanosis. Right heel ulcer been taking care of by the nurses. MUSCULOSKELETAL: No joint swelling. NEUROLOGIC: Responses to the verbal stimuli and goes back to sleep. Mumbles some words. Neuromuscular could not be assessed. LYMPHATIC: No lymph nodes palpable. SKIN: Intact. LABS: WBC 11.10, hgb 10.2, hct 33.0, plt count 176, sodium 156, potassium 3.4, chloride 123, bicarb 24, BUN 20, creatinine 1.37. ASSESSMENT: 1. Bibasilar pneumonia, aspiration and persistent aspiration 2. Severe hypernatremia which is better today 3. Right heel ulcer 4. Alzheimer's Dementia 5. Atrial fibrillation not on any blood thinners secondary to frequent falls 6. Permanent pacemaker PLAN: 1. Continue D5 water, the patient had almost a deficit of 8 liters which was calculated on the May 16 and been getting IV fluids at 50ml per hour 2. He is getting NG tube washings with the 250ml of D5 water Q 3 times a day 3. Antibiotic Zosyn and Vancomycin 4. Breathing treatments 5. Steroids TIME SPENT: More than 35 minutes MTDD
--- NOTE | 2017-05-20 13:47 | PN ---
DATE OF SERVICE: 05/19/17 SUBJECTIVE: The patient was admitted with aspiration pneumonia. The patient has been getting the NG tube feedings the patient is improving gradually, more responding today but still not able to make sense out of him. CT of the head showed only chronic changes, no acute stroke. Sodium is gradually getting better. Today morning 152 and BUN and creatinine has improved. REVIEW OF SYSTEMS: CONSTITUTIONAL: No fever, no chills. HEENT: Normal. ENDOCRINE: No weight gain, no weight loss. CVS: No angina symptoms. No CHF symptoms. No palpitations. No atypical chest pain for CAD. No shortness of breath. No PND, no orthopnea. RESPIRATORY: No cough, no hemoptysis. GI: No nausea, no vomiting. No abdominal pain. : No hematuria. No polyuria. MUSCULOSKELETAL: No joint swelling. PSYCHIATRIC: Not anxious. No depression. No suicidal thoughts. No homicidal thoughts. SKIN: Intact. No rash. PHYSICAL EXAMINATION: V/S: Blood pressure 142/77, respiratory rate 20, heart rate 81, temperature 96.5. HEENT: Normocephalic, atraumatic. Mucosa dry. Pallor positive. No icterus. NECK: Supple. No JVD, no carotid bruit. No lymphadenopathy. LUNGS: Decreased entry and crackles. No rales or rhonchi. HEART: S1, S2 normal. No S3. No murmur, gallop or regurgitation. ABDOMEN: Soft, nontender. Bowel sounds Sluggish. No rigidity. No rebound or guarding. No CVA tenderness. EXTREMITIES: No pedal edema. No clubbing or cyanosis. Right heel has decubitus ulcer. Dry. MUSCULOSKELETAL: No joint swelling. NEUROLOGIC: Responses to the verbal stimuli and goes back to sleep. No focal deficit. LYMPHATIC: No lymph nodes palpable. SKIN: Intact. LABS: Sodium 152, potassium 3.7, chloride 117, bicarb 25, BUN 19, creatinine 1.22, WBC 11.10, hgb 10.2, hct 33.0, plt count 176. ASSESSMENT: 1. Hypernatremia mostly from the dehydration 2. Acute on chronic renal failure 3. Bibasilar pneumonia from the aspiration pneumonia 4. Change in mental status from the hypernatremia 5. Alzheimer Dementia 6. Atrial fibrillation 7. Coronary artery disease 8. Congestive heart failure PLAN: 1. Continue NG tube feedings at 50ml; per hour 2. Continue D5 water at 50ml per hour 3. DUO NEBS 4. Flagyl 500mg Q 8 hours 5. Zosyn 6. Daily I&O's 7. Most like will discharge the patient tomorrow to the senior care after having the meeting with the patient's family TIME SPENT: More than 35 minutes MTDD
[2017-05-21] MEDS: DEXTROSE 5%-WATER IV SOLN 1,000 ML IV SCH (04:10)
[2017-05-21] MEDS: DUONEB NEB SCH ×3 (04:30→14:16)
[2017-05-21] MEDS: WATER IV SCH ×2 (06:04→14:01)
[2017-05-21] MEDS: DEXTROSE 5% IV SCH ×2 (06:04→14:01)
[2017-05-21] MEDS: ZOSYN IV SCH ×2 (06:04→14:01)
[2017-05-21] MEDS: FLAGYL PO SCH ×2 (06:05→14:01)
[2017-05-21] MEDS: ARICEPT PO SCH (08:36)
[2017-05-21] MEDS: CALMOSEPTINE OINTMENT TP PRN (08:37)
[2017-05-21] MEDS: BACTROBAN TP SCH (08:37)
[2017-05-21] MEDS: IMODIUM PO SCH (08:38)
[2017-05-21] MEDS: K-DUR PO SCH (08:39)
[2017-05-21] MEDS: LOPRESSOR PO SCH (08:39)
[2017-05-21] MEDS: MUCINEX PO SCH (08:39)
[2017-05-21] MEDS: PRAVACHOL PO SCH (08:40)
[2017-05-21] MEDS: MULTAQ PO SCH (08:40)
[2017-05-21] MEDS: NAMENDA PO SCH (08:40)
[2017-05-21] MEDS: ZESTRIL PO SCH (08:41)
[2017-05-21] MEDS ORDERED: PROTONIX IV 40 MG in SODIUM CHLORIDE 100 ML IV SCH (09:00)
[2017-05-21 09:22] VITALS: BP 150/82; TEMP 98.8
[2017-05-21] MEDS ORDERED: PROTONIX IV IVP SCH (11:00)
[2017-05-21] MEDS: VANCOMYCIN 750 MG in SODIUM CHLORIDE 250 ML IV SCH (11:06)
[2017-05-21] MEDS ORDERED: PROTONIX NG SCH (17:00)
--- NOTE | 2017-05-22 08:48 | PN ---
DATE OF SERVICE: 05/16/17 SUBJECTIVE: The patient was started on some IV fluids and NG tube. Ever since we started the NG tube the sodium is going up. The patient's sodium is 163, chloride is 129. He responses to the verbal stimuli and goes back to sleep. We were able to get the NG tube around 30ml per hour and there was no residuals. Planning to increase the fluid. REVIEW OF SYSTEMS: CONSTITUTIONAL: No fever, no chills. HEENT: Normal. ENDOCRINE: No weight gain, no weight loss. CVS: No angina symptoms. No CHF symptoms. No palpitations. No atypical chest pain for CAD. No shortness of breath. No PND, no orthopnea. RESPIRATORY: Cough and congestion, no hemoptysis. GI: No nausea, no vomiting. No abdominal pain. : No hematuria. No polyuria. MUSCULOSKELETAL: No joint swelling. PSYCHIATRIC: Not anxious. No depression. No suicidal thoughts. No homicidal thoughts. SKIN: Intact. No rash. PHYSICAL EXAMINATION: V/S: Blood pressure 148/81, respiratory rate 24, heart rate 83, temperature 97.7. HEENT: Normocephalic, atraumatic. Mucosa dry. Pallor positive. No icterus. GENERAL: Sick looking man laying in a bed, on NG tube feedings. NECK: Supple. No JVD, no carotid bruit. No lymphadenopathy. LUNGS: Decreased and basilar crackles. Clear to auscultation. No rales or rhonchi. HEART: S1, S2 normal. No S3. No murmur, gallop or regurgitation. ABDOMEN: Soft, nontender. Bowel sounds active. No rigidity. No rebound or guarding. No CVA tenderness. EXTREMITIES: No pedal edema. No clubbing or cyanosis. Right heel ulcer. MUSCULOSKELETAL: No joint swelling. NEUROLOGIC: Response to the verbal stimuli and goes back to sleep. No focal deficit. LYMPHATIC: No lymph nodes palpable. SKIN: Intact. LABS: Sodium 163, potassium 3.1, chloride 129, bicarb 24, BUN 25, creatinine 1.37, WBC 9.63, hgb 10.2, hct 32.9, plt count 180. ASSESSMENT: 1. Hypernatremia 2. Bibasilar pneumonia from aspiration pneumonia 3. Hypokalemia which has been replaced 4. Anemia 5. CAD 6. CHF 7. Atrial fibrillation 8. Alzheimer's Dementia PLAN: 1. D5 water at 50ml per hour 2. DUO NEBS 3. Zosyn 4. Vancomycin 5. We will take to the pharmacy if they can mix the Vancomycin and Zosyn and the D5 water instead of normal saline 6. Continue to monitor the Sodium and Potassium every Q 8 hours 7. Guarded prognosis been discussed with the family. TIME SPENT: More than 35 minutes MTDD
--- NOTE | 2017-05-29 09:05 | PN ---
DATE OF SERVICE: 05/20/17 SUBJECTIVE: The patient did aspirated the NG feed yesterday. Over night nurse, has to stop the feedings. The did develop a fever of 103 in the morning. The patient was given a dose of Rocephin. The patient is already on the Azactam and Flagyl. Cough and congestion. More awake and alert. Sodium is now 145, potassium 3.3. REVIEW OF SYSTEMS: CONSTITUTIONAL: No fever, no chills. HEENT: Normal. ENDOCRINE: No weight gain, no weight loss. CVS: No angina symptoms. No CHF symptoms. No palpitations. No atypical chest pain for CAD. No shortness of breath. No PND, no orthopnea. RESPIRATORY: No cough, no hemoptysis. GI: No nausea, no vomiting. No abdominal pain. : No hematuria. No polyuria. MUSCULOSKELETAL: No joint swelling. PSYCHIATRIC: Not anxious. No depression. No suicidal thoughts. No homicidal thoughts. SKIN: Intact. No rash. PHYSICAL EXAMINATION: V/S: Blood pressure 124/63, respiratory rate 24, heart rate 92, temperature 99.6 with saturation 97% on 2 liters. HEENT: Normocephalic, atraumatic. Mucosa dry. NECK: Supple. No JVD, no carotid bruit. No lymphadenopathy. LUNGS: Decreased and basilar crackles with expiratory rhonchi. No rales or rhonchi. HEART: S1, S2 normal. No S3. No murmur, gallop or regurgitation. ABDOMEN: Soft, nontender. Bowel sounds active. No rigidity. No rebound or guarding. No CVA tenderness. EXTREMITIES: No pedal edema. No clubbing or cyanosis. Right heel ulcer. MUSCULOSKELETAL: No joint swelling. NEUROLOGIC: Awake, alert, responses to the verbal stimuli and hold the hand. No focal deficit. LYMPHATIC: No lymph nodes palpable. SKIN: Intact. LABS: Sodium 145, potassium 3.6, chloride 111, bicarb 23, BUN 17, creatinine 1.17, glucose 108, WBC 25.5, hgb 10.8, hct 33.5, plt count 194. ASSESSMENT: 1. Fever most likely from the aspiration pneumonia 2. Bibasilar pneumonia, aspiration 3. NG tube feeding aspirated, as of now been on hold 4. Hypernatremia, resolved 5. Hypokalemia, replaced 6. Coronary artery disease 7. Congestive heart failure 8. Alzheimer's Dementia 9. Change in mental status, most likely from the Metabolic encephalopathy PLAN: 1. Stop the NG tube feedings 2. Vancomycin 1 gram now 3. Continue the Azactam and Flagyl 4. Guarded Prognosis and Poor prognosis been discussed with the patient's son Waylon and verbalized understanding. Most likely will discharge the patient back to the senior living in the morning. They want Hospice care or comfort for the patient at this time which will be discussed further with the family and the patient's POA, Mr. Connors, the patient's son. TIME SPENT: More than 35 minutes MTDD
--- NOTE | 2017-06-11 11:18 | DS ---
DATE OF SERVICE: 05/23/17 FINAL DIAGNOSIS: 1. FEVER MOST LIKELY FROM ASPIRATION PNEUMONIA, BIBASILAR PNEUMONIA FROM ASPIRATION AND G-TUBE FEEDINGS, ASPIRATED, OF NOW ON HOLD 2. HYPERNATREMIA WHICH IS BETTER AND IMPROVED FROM DEHYDRATION 3. HYPOKALEMIA, REPLACED 4. CAD 5. CHF 6. 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 Poor prognosis has been discussed. The patient will be admitted to Dr. Philip Middleton' care as I am leaving [facility]. MEDICATIONS AT DISCHARGE: Vancomycin Azactam Flagyl Continue the rest of the medications, breathing treatments and steroids NEW PRESCRIPTIONS: N/A DIET INSTRUCTIONS: Continue NG tube feedings at 30 mL/hr ACTIVITY: Bedrest SMOKING: N/A DISEASE SPECIFIC EDUCATION: Aspiration Pneumonia Antibiotic use Diarrhea NG feedings with poor outcome of the patient has been discussed with the patient 's family, verbalized understanding. HOSPITAL COURSE: This is an 82-year-old male who came to the emergency room with change in mental status, cough and congestion, fever with temperature of 103. Tylenol was given while in the emergency room. He was seen by the emergency room physician, Dr. Beltran. White count is normal. Hemoglobin 11.7. Chemistry, BUN and creatinine 19 and 1.22. Sodium 152. Urine positive for bacteria. Cytology was negative. CT chest showed bilateral nodular density left greater than the right lower lobe consistent with pneumonia. At that time the patient was admitted to the hospital, started on IV antibiotics, Azactam, Vancomycin. Flagyl was given as there was high suspicion for aspiration. Swallow evaluation was done which did show that the patient was swallowing a lot of food. The patient was kept NPO, continued with IV antibiotics, breathing treatment and steroids. Prognosis was looking very poor with the given condition. BUN and creatinine was getting better. The patient was not eating. He was started on NG tube feedings. Within two days of NG tube feeding, sodium went up to 161, 163. IV fluids changed to 1/2 NS then 163, 162 and 161. The patient was then started on D5 water. Antibiotics were also changed and NG tube flushings were also done with D5 water. Gradually the sodium became normal. Potassium was low which was also replaced. IV Lasix was given in between. Hemoglobin and hematocrit were steady. The patient started aspirating even the NG tube feedings; they were running at 50 mL/hr which was stopped. I reevaluated the patient. Most of the NG tube feedings were gone and we wanted to resume the NG tube feedings and send back to the longterm. The patient's family had a concern as the patient 's condition was deteriorating. They wanted to wait and see and so at that time , the patient was admitted to the Transitional Care Unit. As I was leaving [facility] , the responsbility of the patient was given to Dr. Philip Middleton who was courteous enough to accept the patient. The patient was admitted to Dr. Middleton. TIME SPENT: MORE THAN 65-70 MINUTES DAVID
== END 2017-05-21 14:01 | disposition swing bed (61) | DRG 177 ==
LOC: ED 14:16 → MEDSURG B 17:13
PROVIDERS: ADMIT Emergency Medicine; ATTEND Emergency Medicine
PROC: 0DH67UZ Insertion of Feeding Device into Stomach, Via Natural or Artificial Opening (ICD-10-PCS; principal; 2017-05-14)
PROC: 3E0G76Z Introduction of Nutritional Substance into Upper GI, Via Natural or Artificial Opening (ICD-10-PCS; 2017-05-14)
DX: J69.0 Pneumonitis due to inhalation of food and vomit (principal); G93.41 Metabolic encephalopathy; F02.81 Dementia in other diseases classified elsewhere, unspecified severity, with behavioral disturbance; E87.0 Hyperosmolality and hypernatremia; N17.9 Acute kidney failure, unspecified; E46 Unspecified protein-calorie malnutrition; R13.12 Dysphagia, oropharyngeal phase; R50.9 Fever, unspecified; I25.10 Atherosclerotic heart disease of native coronary artery without angina pectoris; I50.9 Heart failure, unspecified; I10 Essential (primary) hypertension; I48.91 Unspecified atrial fibrillation; J44.9 Chronic obstructive pulmonary disease, unspecified; I12.9 Hypertensive chronic kidney disease with stage 1 through stage 4 chronic kidney disease, or unspecified chronic kidney disease; N18.9 Chronic kidney disease, unspecified; G30.9 Alzheimer's disease, unspecified; L89.612 Pressure ulcer of right heel, stage 2; E86.0 Dehydration; D64.9 Anemia, unspecified; F31.9 Bipolar disorder, unspecified; E87.6 Hypokalemia; R41.82 Altered mental status, unspecified; K52.9 Noninfective gastroenteritis and colitis, unspecified; K57.90 Diverticulosis of intestine, part unspecified, without perforation or abscess without bleeding; R05 Cough; R45.1 Restlessness and agitation; I27.20 Pulmonary hypertension, unspecified; Z86.73 Personal history of transient ischemic attack (TIA), and cerebral infarction without residual deficits; Z95.0 Presence of cardiac pacemaker; Z79.899 Other long term (current) drug therapy; Y95 Nosocomial condition
CPT/HCPCS: 36415; 80053; 80202; 81001; 84145; 85025; 87040; 87086; 87502; 87651; 93005; 93010; 94640; 96365; 97802; 99284

== ENCOUNTER 2017-05-21 14:01 | Inpatient (IN) ==
[2017-05-21] MEDS ORDERED: TRANDATE IVP PRN (15:00)
[2017-05-21] MEDS ORDERED: ATIVAN IVP PRN (15:01)
[2017-05-21] MEDS ORDERED: TYLENOL PO PRN (16:40)
[2017-05-21] MEDS: INVANZ 1 GM in SODIUM CHLORIDE 50 ML IV SCH (18:43)
[2017-05-21] MEDS: CALMOSEPTINE OINTMENT TP PRN (18:44)
[2017-05-21] MEDS: DEXTROSE 5%-WATER IV SOLN 1,000 ML IV SCH (18:44)
[2017-05-21] MEDS: VANCOMYCIN 750 MG in SODIUM CHLORIDE 250 ML IV SCH (20:23)
[2017-05-21] MEDS: PROTONIX IV IVP SCH (20:25)
[2017-05-21] MEDS: DUONEB NEB SCH (20:25)
[2017-05-21] MEDS: LOPRESSOR PO SCH (20:31)
[2017-05-21] MEDS: FLAGYL PO SCH (20:31)
[2017-05-21] MEDS: MUCINEX NG SCH (20:31)
[2017-05-21] MEDS: BACTROBAN TP SCH (20:33)
[2017-05-21] MEDS ORDERED: BACTROBAN OINTMENT 1 GRAM APPLICATOR (ER) TP SCH (21:00)
[2017-05-21] MEDS: ZOSYN IV SCH (22:36)
[2017-05-21] MEDS: WATER IV SCH (22:36)
[2017-05-21] MEDS: DEXTROSE 5% IV SCH (22:36)
[2017-05-22] MEDS: DEXTROSE 5% IV SCH ×3 (04:40→21:37)
[2017-05-22] MEDS: FLAGYL PO SCH (04:40)
[2017-05-22] MEDS: WATER IV SCH ×3 (04:40→21:37)
[2017-05-22] MEDS: ZOSYN IV SCH ×3 (04:40→21:37)
[2017-05-22] MEDS: DUONEB NEB SCH ×4 (05:05→19:40)
[2017-05-22] MEDS ORDERED: K-DUR PO SCH (08:00)
[2017-05-22] MEDS ORDERED: NON-FORMULARY MEDICATION (Loperamide Hcl [Loperamide] 2 MG) PO SCH (09:00)
[2017-05-22] MEDS ORDERED: IMODIUM PO SCH (09:00)
[2017-05-22] MEDS ORDERED: NON-FORMULARY MEDICATION (Potassium Chloride [Potassium Chloride] 20 MEQ) PO SCH (09:00)
[2017-05-22] MEDS ORDERED: DRONEDARONE HCL 400 MG PO SCH (09:00)
[2017-05-22] MEDS ORDERED: ZESTRIL PO SCH (09:00)
[2017-05-22] MEDS ORDERED: MULTAQ PO SCH (09:00)
[2017-05-22] MEDS ORDERED: ATIVAN IVP PRN (09:30)
[2017-05-22] MEDS: VANCOMYCIN 750 MG in SODIUM CHLORIDE 250 ML IV SCH (09:37)
[2017-05-22] MEDS: PROTONIX IV IVP SCH ×2 (09:37→20:24)
[2017-05-22] MEDS: LOPRESSOR PO SCH (09:42)
[2017-05-22] MEDS: MUCINEX NG SCH ×2 (09:42→20:36)
[2017-05-22] MEDS: BACTROBAN TP SCH ×2 (09:43→20:36)
[2017-05-22] MEDS ORDERED: TYLENOL NG PRN (11:00)
[2017-05-22] MEDS: DEXTROSE 5%-WATER IV SOLN 1,000 ML IV SCH (11:25)
--- NOTE | 2017-05-22 12:46 | PCM ---
- Chief Complaint Chief Complaint: Aspiration pneumonia, Alzheimers Dementia, Heel Ulcer, Afib (not anticoagulated) , hypernatremia (now resolved), hypokalemia, hypocalcemia, anemia, CKD. Patient is not verbal. - History of Present Illness History of Present Illness: Patient has been followed by Dr. Dye and I am now covering for the patient. 82 yr old WM history of stroke, bedridden, alzheimers dementia was admitted on from [place] after fever tmax 103/cough and congestion worsened. Pt transferred to [facility] for eval. Febrile in ER, normal WBC coun, Creatinine elevated at 1.35. Dr. Beltran saw patient in the ER, ER note reviewed by me today. WBC 8.87, Hgb 11.7, plt 124. Orders were placed. BC, CBC, CMP, Flu, strep, procalcitonin, UA +C+S. Rocephin for abx. History of PCN allergic reaction, Bactrim allergy as well. CT chest bibasilar pneumonia. IV abx, neb tx, IV fluids for admit. Patient was seen/rounded on daily by Dr. Dye. Daily progress Note 05/11/17 Reviewed: Dx Facility acquired pneumonia, coughing with congestion. Swallow Eval (listed below) done on 05/10/17, aspirating so made NPO. Left Heel ulcer noted. Dementia, anemia, edema. Afib, exam no pedal edema, edema noted on assessment. Not on blood thinners at present due to frequent and recurrent falls. Progress note 05/13/17 reviewed: Primary discussed with son (POA) about swallow eval. Patient living at home a few months prior walking/talking minimally. Known alzheimers, UTI and septic. Total change in mental status, was in NH to help with ambulation and getting phys therapy. Problem with swallowing prior to illness and hospital stay. Son (POA) denied feeding tube initiall, cough/congestion. Progress note 05/17 reviewed: NG tubes for feedings for malnutrition, NPO status from swallow study. Coughing and congested. REsponded to verbal stimuli and back to sleep. Invanz, vanco, duonebs, NG tube feeds, d5 water IV fluids. Last progress note in chart 05/19/17 reviewed. Last labs/vitals/trends reviewed. Admitted w/ aspiration pneumonia. Gettin g NG feeds and improved gradually. more responsive on 05/29/17, not able to make sense of patient. CT head chronic changes on CT head 05/18/17 cerebral atrophy. Sodium improved. I looked back through system for last 1 week and sodium on 05/15 161, 05/16 was 163 and 162, 05/17 was 161, 05/18 156 and then 153, 05/19 152, 05/20 was 145 and then 144 and then 05/21 was 143 and 144. Today he was at 143. His creatinine has increased and decreased from 05/19 to present. 05/19 1.07 , 05/20 1.17 in am and 1.46 in pm and 05/21 1.41 in am and 1.26 in pm. 05/22 was 1.28. CrCl 62 ml/minute as of today. Reviewed selenay sexam, BP HR and RR stable. Not on vent. Dx hypernatremia ?dehydration, acute on chronic renal failure, bibasilar pneumonia from aspiration, change in mental status, alzheimers dementia, afib, CAD, CHF. NG tube feeds to continue 50ml/hour. D5 water 50ml/ hour. He is on flagyl 500 q 8, zosyn as well. D/C to NH recommended by Dr. Dye. Check out from PCP yesterday, Waylon as POA regular NG feeds not tolerating any feeds well. Was considering NH, family chose swing bed. He is DNR. PCP discussed comfort care. I would consider hospice as an option in this case. I rounded on patient at 7 am 05/22/17 and no family was present, patient did not awaken to name, to gentle patting or mild sternal rub. Pupils were reactive, asleep mouth agape and loud breathing/gurgling. Nursing has been performinng suctioning. Talked with Case management about patient. Awaiting family to get here today so that I could talk with them. Resting in room eyes, he did not respond to me with sternal rub, commands. Pupils are small but resonsive. NG tube left nare. Reviewed nursing notes, ST notes from admit until transfer to TCU. 05/08 22:14 more alert, nursing talked with Major from [place] about cough. He ntoed cough and trouble clearing secretions. 05/[address] Dye cough and decreased O2, Lasix 40 IVP stat mucinex added vancomycin. 05/09/17 Case management note reviewed, patient up in bed, talking, puree with nectar, ensure blood/urine/sptum culture sampels, using nebs. Speech to see patient. Unable to lie flat, trouble clearing secretions. Right foot stage 2 ulcer. 05/10/1819:15 aroused to name and unable to drink from straw, cough worse. 05/10 awakened easily speech unclear Rales/rhnochi bilaterally and +Heel protection. 05/10 Case note reveiwed by Vicki Tele Pacer BBB, A-fib PVC/BBB. 05/10 18:51 Temp 102.3, aroused to name 20:55. Ulcer on heel, NPO and HOB elevated. 05/11/ pt removed IV and new placed 22G L hand. 05/12/17 Pt pulled IV again and replaced R upper arm. Takin gtele off. 05/12 19:00 provider d/w family. 05/13 case note zosyn /vanco/COURT STENOGRAPHER status. Noncooprative w/ care. Afebrile O2 2L NC, coarse lung sounds. Blood CX negative 4 day, CXR. 05/13 pleasant mood singing to staff dentures removed oral care. Pulled out IV again. Pulled off Tele, pulls off O2. 05/13 20:40 aphasic, lungs coars, will not wear tele or O2. NPO oral care. Pressure ulcer heel. 05/14 Case note zosn/vanco/fluids at NS 40/hr. Speechtherapy. cXR from 05/13 stable. 97%RA afebrile. No fever since 05/10 10pm, WBC stable, Blood cx and urine cx negative. Speech working on swallow. NG placed for temporary nutrition. Electrolytes worsening. Sodium 159, K+ 3.1, Cl 125, Cr 1.30, unable to consume liquids/solids. NS 40/hr. 05/14 used 93 days skilled. 14:50NG tubew/ 24 hour feeds jevity 1.5 30ml/hr auto flushes 30ml every hour x 24 hours. NG [address] Success 16:22 combative/ uncooperative, took3 staff. CXR for placement. 4/3 22:56 pt yelling grabbing at sheets/staff. IVP Ativan 1mg called in. 05/15/17 02:01 NG 14F placed. 05/15 case note zosyn/vanco/IV fluds, NPO/speech therapy. Confused unocooperative, removes O2/Gown and NG tube. CXR confirmed placement vitals stable. Incontinent of bowel/bladder. Checking reisual q4 hors if >50 goal was to reduce rate. 05/15/17 critical labs called to DR. Dye. 05/16 03:07 Pt did not awaken with assessment, coarse sounds, IV patent 30ml/hr jevity. Pt attempted to pull outNG tube 0145, ativan given. 05/16/17 Dietar increased jevity recommendation to 50mg/hr for 1800 kcal 77g protein 2700 ml fluids. 05/16/17 Pt pulled NG. 05/16 case note 0956 lethargic non verbal, harsh sounds no fever, no wbc. pipo ng feeds, no residual, no diarrhea, jevity 30/hr with q 1 hour flushes. Denied G tube by family. Talked with son and these tube feeds are only temporary. Goal increase strength to restore swallowing. D/W family good days/bad days. Family requested continued NG feeds. Sodium worsening. 05/16 11: 51 NG placed again in surgery. 05/16 critica labs called 13:42 Cl 130, Na 163. 05/17 case note lethargic non verbal sodium down to 161, K= 3.6 cr 1.28. Decreased breath sounds, tolerating tube feeds.50ml/hr jevity. Still on zosyn/vanco. BP up fever negative. 98% on2LNC. Freq suction needed, mouth care needed. D5W for flushes, [place] to get accurate Uout. 05/18 open mouth for suction squeeze nurse hand not opening eyes to commands. CT head ordered. 05/18 Pt family asked to D/C NG tube, they asked about hospice eval. 05/19 opened eyes some. Good NG placement. 20:00 cough worse, 21:00 wet cough suctioning cream colored material from OP and mouth. 05/20 nursing noted of copious cream color secretions via suction. Feeds held since 2199 scand residuals. CXR ordered. 05/20 8:45 HOB welevated, lungs congestd, coarse sounds,/rhonchi, loose cough. Not responsive to stimuli/verbal. Generalized edema, temp elevated again 100.9. NPO perorders. Case note 05/20 not arousable to verbal or tactile stimule. Withdrew from pain, not opening eyes. Sodium improved to 145, WBC 20.55. Tylenol for tem. . 97% 2L NC. Jevity held. Dr. Dye d/w patient hospice. Zosyn and vanco. CXR showed worsening aspiration/infiltrate. 05/21 1939 crackles O2 2l NS, [place] sump in place, [place] boots in place bilateral UE edema, right foot lesion from admission unchanged. 05/20 22:33 Temp 101.1 05/21 Case note zosyn vanco and IVF 40/hrr. Nor esponse to verbal/tactical stimuli, NPO, Jevity resumed x 2 hour and monitored residual. Instruction was if residual back down. CXR Right and LLL aspiration. WBC >20, febrile. 05/21 D/C to TCU, 05/21 2100 change position q2 hours. Incontinent of bowel bladder. Pericare, oral care, NG suction. NG left nare 30/hr Jevity. Cough noted, urine c+S ordered. 05/22 throat congstion worse, non verbal, moans O2 2L 100%. Case note eyes closed attempted open eyes, squeezed her hand. Speech Note 05/20/17: Decreased status, decreased function. NO swallow response with ice/thermal. Sour with weak swallwo response. Poor prognosis for any PO intake. Remain NPO, G tube of ? benefit with health. Laboratory: WBC Trends 05/08/17 8.87, 8.51, 5.46, on 05/14 7.59, 05/16 9.63, 05/17 11.51, 05/18 11.10, 05/19 10.34 and 05/20 20.55. Today back to normal at 7.06 H/H Trends Started at 11.7 and has trended down to 8.4 as of today. 05/22/17 Range/Units 04:45 Hgb 8.4 L (14.0-18.0) g/dl Hct 26.1 L D (42.0-52.0) % Platelets 124, 129, 109, 163 (05/24), 180, 208, 176, 167, 194 and 05/22/17 130 and low. Vitals reviewed today: up and down. hypocalcemia: 8.3 down to 7.8. We can consider to Add calcium. Hypokalemia: No magnesium that I could find was ordered. I will check this. Flu: Negative at admit Strep: Negative at admit. BC negative. Urine culture Negative No Sputum culture ordered so far. 05/18/17. CT Head reviewed: No acute intracranial abnl seen Chronic small vessel ischemic changes throughout. Mild atrophy. 05/10/17: CT abd/pelvis w/o: Cholelithiasis, 9mm hyperdenisty within bladder near right UVJ may be stone or intraluminal bladder hemorrhage, bilateral renal cysts, bibasilar pneumonia. 05/10/17 Barium Swallow: Recommended pureed pudding thick liquids. Aspirated thin, nectar and honey thick difficulty with recovering from coughing. Fatigued during testing. Severe oropharyngeal dysphagia, BOT control, epiglottic inversion, laryngeal excursion, , delay in swallow initiation, poor swallow response, with moderate residuals and penetration/aspiration on thin/ nectar and honey thick liquid. Did cough. NPO recommended due to risks of aspiration. 05/08/[address] w/o contrast. Bilateral nodular denisites with coalescent L>R lower lobe consolidation consistent with pneumonia. Recommended f/u CT in 4-6 weeks. Talked with care management today, talked with nursing today, family not present this am during rounds. Talked with pharmacy today as well. 05/14/17 - Review of Systems Constitutional: fever, weakness, fatigue, loss of appetite Eyes: other (unable to answer. ) Nose: discharge (mucus at times. ). No: bleeding Throat: other (unable to answer aphasic. ) Mouth: other (aphasic. ). No: bleeding, swelling Respiratory: cough, shortness of air, wheeze, other (aphasic. ) Cardiovascular: other (aphasic) Gastrointestinal: diarrhea (incontinent), other (aphasic). No: hematochezia Genitourinary: incontinence, testicular swelling (mild to moderate) Neurological: other (non responseive to stimuli this am. ) Musculoskeletal: other (aphasic. ) Skin: rash (foot heel right no other rash. ) Immunology: other (aphasic) Hematology: No: easy bruising, easy bleeding Endocrine: other (aphasic) Psychiatric: sleeplessness, other (aphasic) - Past Medical History Past Medical History: [facility] Mccann, Son Ernesto is POA. No family here today. Afib , CHF, Permanent pacemake,r, HTN, edema, alzheiemrs dementia, COPD, osteoarthritis, DJD spine. - Past Surgical History Past Surgical History: None reported, H+P reviewed and did not find any. Family not present, patient unable to respond. - Allergies Allergies/Adverse Reactions: Allergies Allergy/AdvReac Type Severity Reaction Status Date / Time Penicillins AdvReac Verified 05/08/17 15:04 sulfamethoxazole AdvReac Verified 05/08/17 15:04 [From Bactrim] trimethoprim [From Bactrim] AdvReac Verified 05/08/17 15:04 - Medications Medications: Medications Generic Name Dose Route Start Last Admin Trade Name Freq PRN Reason Stop Dose Admin Acetaminophen 650 mg 05/22/17 11:00 Tylenol NG Q4H PRN Fever greater than 100 or pain Albuterol/Ipratropium 1 vial 05/21/17 20:00 05/22/17 10:14 Duoneb NEB 1 vial RTQID MAYELIN Administration Calamine/Phenol 1 applic 05/21/17 14:57 05/21/17 18:44 Calmoseptine Ointment TP 1 applic PRN PRN Administration Diaper Rash Dronedarone 400 mg 05/23/17 09:00 Multaq NG DAILY MAYELIN Guaifenesin 600 mg 05/21/17 21:00 05/22/17 09:42 Mucinex NG 600 mg Q12HR MAYELIN Administration Vancomycin HCl 750 mg/ Sodium 250 mls @ 125 mls/hr 05/21/17 21:00 05/22/17 09 :37 Chloride IV 05/22/17 13:00 125 mls/hr Q12HR MAYELIN Administration Dextrose 1,000 mls @ 50 mls/hr 05/21/17 15:00 05/22/17 11:25 Dextrose 5%-Water Iv Soln IV 50 mls/hr .Q20H MAYELIN Administration Piperacillin Sod/Tazobactam 250 mls @ 63 mls/hr 05/21/17 21:00 04/11/18 04:40 Sod 4.5 gm/ Dextrose IV 63 mls/hr Q8HR MAYELIN Administration Ertapenem 1 gm/ Sodium 50 mls @ 75 mls/hr 05/21/17 16:30 05/21/17 18:43 Chloride IV 05/30/17 23:00 75 mls/hr DAILY MAYELIN Administration Vancomycin HCl 500 mg/ Sodium 100 mls @ 100 mls/hr 05/22/17 21:00 Chloride IV Q12HR MAYELIN Labetalol HCl 5 mg 05/21/17 15:00 Trandate IVP Q6HR PRN Hypertensive Emergency Lisinopril 10 mg 05/23/17 09:00 Zestril NG DAILY MAYELIN Loperamide HCl 2 mg 05/23/17 09:00 Imodium NG DAILY MAYELIN Lorazepam 1 mg 05/22/17 09:30 Ativan IVP Q6H PRN ANXIETY Metoprolol Tartrate 50 mg 05/22/17 21:00 Lopressor NG BID MAYELIN Metronidazole 500 mg 05/22/17 13:00 Flagyl NG Q8HR MAYELIN Mupirocin 1 applic 05/21/17 21:00 05/22/17 09:43 Bactroban TP 1 applic BID MAYELIN Administration Pantoprazole Sodium 40 mg 05/21/17 21:00 05/22/17 09:37 Protonix Iv IVP 40 mg BID MAYELIN Administration Potassium Chloride 20 meq 05/23/17 08:00 K-Dur NG DAILYWM MAYELIN - Family History Past Family History: HTN, no family to respond at hospital today. Reviewed H+P and ER note. - Social History Past Social History: Lives at [facility]. Alzheimers dementia. - Vital Signs Temperature: 99.7 F Pulse Rate: 77 Respiratory Rate: 18 Blood Pressure: 98/55 O2 Sat by Pulse Oximetry: 100 - Body Composition Height: 72 ft Weight: 219 lb Body Mass Index (BMI): 0.1 - Physical Examination HEENT: Constitutional: Appearance-Aphasic, asleep in bed, arms appear edematous, eyes closed mouth agape and patient is not responsive to verbal stimuli nor to sternal rub. Eyes manually opened and flashlight shown into eyes and pupils did respond to direct and consensual light response. He did not avoid wisp of cotton on eyes. Orientation- Aphasic. Posture- Hospital bed, head of bed elevated, NG tube left nare, mouth open, gurglng present. Build and Nutrition- Skin turgor seems good. He is on IV fluids and tube feedings. Integumentary: General-No visible rashes, ulcers or lesions. He does have heel pad boots in place. He has heel ulcer stage 2 with red base on right heel. Right hand Head/Neck: Head- normocephalic and atraumatic. Neck- without visible/palpable lumps or pulsations. Palpation- Did not withdraw to pain. NO obvious pain response. Eye: Pupils small, did respond to direct/indirect light. Did not follow. Right eye possibly deviated from same source as left. Upper and lower eyelids are normal. Unable to open eyes on own. ENMT: Pinna- normal without tenderness or erythema. External auditory canal Left- normal without erythema or discharge, no excessive cerumen. External auditory canal Right-normal without erythema or discharge, no excessive cerumen. TM left- Agarwal/pearly, normal light reflex and anatomy TM Right- Agarwal/ pearly, normal light reflex and anatomy Hearing Assessment-normal to conversational speech. Nose and sinus- No sinus tenderness along frontal/ maxillary region. External appearance normal and midline. Nares- erythematous, boggy, Oropharynx- nG tube in place left nare. CHEST/LUNG: Inspection- symmetric chest wall no pectus deformity. NC in place, breathing on own. Normal effort, no distress Auscultation- Breath sounds diminished and coarse throughout all lung cordoba. decreaed tracheal sounds, bronchial sounds overlying sternum, Bronchovessicular sounds between scapulae posteriorly, vessicular breath sounds heard throughout periphery. Lungs are coarse prominent upper airway sounds radiate into periphery and lower sounds present too. Adventitious sounds- No wheezes, rales, rhonchi. CARDIOVASCULAR: Auscultation- Regular rate and rhythm. ABDOMEN: Inspection- normal and no visible pulsations. Normal contour. Auscultation- Bowel sounds present all 4 quadrants. no appreciable abdominal bruits. Palpation/Percussion- soft, non-tender, no rebound tenderness, no rigidity (guarding), no jar tenderness, no masses. Peripheral Vascular: Upper extremity Left- Normal temperature, dry with pink nailbeds and no ulcerations. Appears edematous vs enlarged/obese. Upper extremity Right- Normal temperature with pink nailbeds and no ulcerations. Appears edematous vs enlarged/obese. Lower extremity- Normal temperature with pink nailbeds and no ulcerations. Heel precuation boots in place. Musculoskeletal: Aphasic, did not respond to commands this am. Neurological: Non responsive to verbal/tactile stimuli/sternal rub. Cranial nerves- unable to assess. Attempted. reflexes patelllar and biceps normal 2+ bilaterally. Neuropsych: Aphasic, not following commands Lymphatic: Head/Neck- normal size and non tender to palpation. Axillary- normal size and non tender to palpation. Femoral and Inguinal- normal size and non tender to palpation. - Assessment (1) Anemia Status: Acute Code(s): D64.9 - ANEMIA, UNSPECIFIED SNOMED Code(s): 210238564 Qualifiers: Anemia type: unspecified type Qualified Code(s): D64.9 - Anemia, unspecified (2) Hypokalemia Status: Acute Code(s): E87.6 - HYPOKALEMIA SNOMED Code(s): 66556490 (3) Hypocalcemia Status: Acute Code(s): E83.51 - HYPOCALCEMIA SNOMED Code(s): 2862808 (4) Alzheimer's dementia Status: Acute Code(s): G30.9 - ALZHEIMER'S DISEASE, UNSPECIFIED SNOMED Code( s): 18540058 (5) Thrombocytopenia Status: Acute Code(s): D69.6 - THROMBOCYTOPENIA, UNSPECIFIED SNOMED Code(s) : 196946032 (6) LOWELL (acute kidney injury) Status: Acute Code(s): N17.9 - ACUTE KIDNEY FAILURE, UNSPECIFIED SNOMED Code (s): 91836323 (7) CKD (chronic kidney disease) Status: Acute Code(s): N18.9 - CHRONIC KIDNEY DISEASE, UNSPECIFIED SNOMED Code(s): 793543136 (8) Fever Status: Acute Code(s): R50.9 - FEVER, UNSPECIFIED SNOMED Code(s): 668012321 (9) Oropharyngeal dysphagia Status: Acute Code(s): R13.12 - DYSPHAGIA, OROPHARYNGEAL PHASE SNOMED Code(s ): 78863579 (10) Pneumonia Status: Acute Code(s): J18.9 - PNEUMONIA, UNSPECIFIED ORGANISM SNOMED Code(s ): 765322314 Qualifiers: Pneumonia type: due to unspecified organism Laterality: right Lung location: lower lobe of lung Qualified Code(s): J18.1 - Lobar pneumonia, unspecified organism (11) Aphasia Status: Acute Code(s): R47.01 - APHASIA SNOMED Code(s): 10601697 (12) Cognitive decline Status: Acute Code(s): F09 - UNSP MENTAL DISORDER DUE TO KNOWN PHYSIOLOGICAL CONDITION SNOMED Code(s): 265279485 - Plan Plan: Cognitive Decline/Aspiration Pneumonia: Admitted to TCU with worsening cognitive function, NG tube feeds at 30-50ml/hr and ~14 days of Zosyn and ~7-8 days of vancomycin. Pharmacy called me today and I agreed to hold the Invanz as the zosyn and vanco should cover most causes of aspiration pneumonia. He has not had a ventilator. Electrolytes have been up and down, difficult to correct. Now sodium is okay but K+ is not, Ca+ is not, plt are not, Hgb is not. He was not responsive to me this am. However, I checked on him again at 12:30 -12:40 and non responsive, mouth agape, not opening eyes and again at 1645 Talked with Ernesto over the phone at 16:45 pm to 17:00. Ernesto feels that his fathers wishes would be to not have a feeding tube. Son is aware that an NG is a feeding tube. His understanding is that he is aware that this is not a permanent option. They are concerned that he will not recover from here. They have been to this point before, considered calling in hospice and then next day he was talking, eyes open and asking what everyone was doing. He has not been this bad, but close historically. [facility] will be at [facility] and they will talk about what they feel should expect. Ernesto said that he was led to believe that this would be 5-7 days and it has now been more than 7 days. He was getting nutrients through the IV. 5 children 1 girl and 4 boys and 2 of them are out of town. We talked about hospice and he is more willing to learn more about this. I discussed we held the invanz for now, continue zosyn, continue vanco and flagyl. Continue NG tube feeds. Patient did squeeze my hand at 500 when I asked him to but uncertain if this is reflex or if this is real. Pupils are small but do respond. We will have a family meeting in the am. We are going to have a family care plan meeting in the am. Family wanted NG tube out previously, I want to reassess their wishes. Speech therapy does not feel he will be able to resume PO status. I am concerned that he may have had an event during this hospitalization with repeated IV pulls and NG pull at least x2. There was a decline in the Nursing notes from before 05/16/17 to . NG placed back in surgery after multiple attempts, Jevity seemed to aspirate into lung. CT head ordered on 05/18 and no obvious changes. Lungs with prominent sounds. As noted above, I did hold the Invanz today as he has not had any + blood cultures, no + urine cultures, I did not find a sputum culture and pharmacy/I had lengthy conversation and felt that this was double coverage and really did not provide much benefit to patient. We have not isolated any ESBL. If we consider a repeat aspiration event on 05/20 we may need another 7 days of abx for that event and consider stopping and continuing zosyn and adding aztreonam with vanco tomorrow as this is a better HAP regimen. Most sources feel that aerobes are more important than anaerobic coverage. -Hold INvanz - Continue Zosyn - Continue Vancomycin - Continue Jevity for now (Will discuss with dietary) HypoK+ and HypCa++: If these remain low on am labs tomorrow, I will start to replace them. With fluid retention, hypernatremia, hypokalemia, hypocalcemia. Concerned for possible refeeding syndrome. CLincal features include muscle weakness, paresthesia, cardiac rhythm changes, muscle strength decrease, respiratory failure, CHF, Rhabdo, erytrhocyte, leukocyte/platelet dysfunction and slowed GI motility (reflux and aspiration). Hypophos, hypokal are seen with this. Can be seen in poor food intake x 10 days. Can also see thrombocytopenia. Await CBC tomorrow. Hypernatremia can be seen with too large protein and too little water. He had decreased kidney function as well. Elderly are more prone to this due to inability to concentrate urine as well. - Check phos in am - Check Mg in am - check b12/folate in am. - Check thiamine in am. - Check zinc. Thrombocytopenia: Patient has low plt. As noted above, check phos levels, b12 levels, folate levels. Thiamine levels. NG Feed: General rule of thumb 30-35ml/kg water per day. Will address with chief sales officer. LOWELL on CKD: Combination of of dehydration or may be secondary to Zosyn and Vanco over past 1-2 weeks. There is known renal issues with combination. Cognitive decline: Has had some benzos during stay but no sedating meds regularly. CT head reviewed. Family care meeting in the am tomorrow. High risk patient, chronic medical problems. I reviewed all of the nursing notes, MD notes, progress notes, reviewed MAR, I+O, talked with pharmacy. Total floor time today 75 min. I am concerned that he may need to go on hospice. Will d/w family in the am.
[2017-05-22] MEDS: FLAGYL NG SCH ×2 (14:02→20:36)
[2017-05-22] MEDS: INVANZ 1 GM in SODIUM CHLORIDE 50 ML IV SCH (17:39)
[2017-05-22] MEDS: VANCOMYCIN 500 MG in SODIUM CHLORIDE 100 ML IV SCH (20:24)
[2017-05-22] MEDS: LOPRESSOR NG SCH (20:36)
[2017-05-22] MEDS: CALMOSEPTINE OINTMENT TP PRN (22:11)
[2017-05-23] MEDS: DEXTROSE 5% IV SCH ×2 (04:25→13:58)
[2017-05-23] MEDS: WATER IV SCH ×2 (04:25→13:58)
[2017-05-23] MEDS: ZOSYN IV SCH ×2 (04:25→13:58)
[2017-05-23] MEDS: FLAGYL NG SCH (04:25)
[2017-05-23] MEDS: CALMOSEPTINE OINTMENT TP PRN (04:30)
[2017-05-23] MEDS: DUONEB NEB SCH ×3 (04:52→13:51)
[2017-05-23] MEDS ORDERED: K-DUR NG SCH (08:00)
--- NOTE | 2017-05-23 08:25 | PCM.PROG ---
Subjective: Family conference completed this am with Ernesto starting at 700 am. The family is having hard time right now as of patient has 24 hour care, trach in place and family are helping with her. The patient has been having trouble swallowing since at least 12/2016 per son ERNESTO (SHIVANI). He was in [facility] in 2016 for swallowing issues ?aspiration pneumonia. From that event he was in [place] and not wanting to get out much and this was his mode of transfer from that point on. Son noted he was about 250 lb in 12/2016, he went home for [facility] 2016 and then back to [place]. Just before going home he had to have someone to sit with him as concern he was a threat. He liked to read all signs and would do what they said "Alarm will sound if pressed." So he would press the alarm. HE was deemed flight risk and danger and thus there was issue with re-placing him into [place]. He had tried multiple locations for [place] nobody would take him and then [facility] took him. Again, he went home for [place] and then he was at [place]. He was Vocal Teacher Executive for 2 terms, school super intendent as well and was very social. For the past 3 months he has had good days and bad, worsening trouble with swallowing. Some days he would Wheel self around [place] and say hi to people, happy, talking and doing better. 2-3 weeks ago cognition decreased. Fevers have been intermittent for the past 1 month per son (I do not have the data). 2 weeks ago more sleepy, cognition declined, more slurring of speech, interaction decreased with those around him and he did not want to eat, choking on food etc. They thought he had UTI at one point, flu at another, choking on food ?Pneumonia. Choked multiple times per son at [place] and w/u for this was started even before 12/2016. He was admitted to [facility] 12/2016 per son with aspiration and was on abx. Son noted that the food had to get thickened more and more with time from 01/2017 to present. Good days and bad days. Weight has dropped to current weight from 250 lb. Very lengthy discussion today with Ernesto and then with Joann today, spending total of 60 minutes face to face with family this am. Son Ernesto does not feel that they can do home hospice due to mother. Information was granted by ERNESTO (SHIVANI) to call JOANN [phone] and or Stan [phone] if needed. PO leaving at 1-2 today and will be gone out of area for 2 days. MOther is aware, she has been by to see him. I have had talk with pharmacist. I will stop the flagyl as this is not likely providing much additional care beyond vanc and zosyn for aspiration. Urine cultures to date have been negative, blood cultures collected as well. He likely reaspirated last week and abx have been continued zosyn and vanco. Spiked fever overnight, this has been happening while he was in [place]. Electrolytes are not stable, NG tube is not permanent option, he is not getting enough nutrition. Overnight freq suctioning required, BLE more edematous, arms edematous. Incontinent of urine redness to cocci. He seems edematous in his back. Still getting Jevity 30/hr. NO residual. I talked with dietary this am and she notes he needs to be closer to 70ml/hr but feeds were reduced. He has pulled out NG multiple times. Family dose not want G tube. Copious green sputum present, coughing up secretions minimally. Wound care to wound on right heel. Evaluated the foot this am and still in special boots for the heel. Labs this am Magnesium is normal at 1.7 Phosphorus is low at 1.4 B12 is normal at 487 Calcium is low Platelet are low Potassium is low Sodium is now normal. Patient is essentially unchanged overnight, not responding, not clearing secretions, heel is healing inside of boot, Tube Feeds NG continue, continued suctioning, continued coarse sounds and febrile overnight up to 103 degrees. This am he did drop back down to 99.7. I have decided to hold the flagyl, continue vanco and zosyn. The patient is highly complex and we have contacted [facility] as of 8:20 this am. I personally called and left message for Dr. Waters to call me back. At this point if I give IV phosphorus, the calcium may drop more. If I give oral phosphorus, sodium load may increase. He may not be getting enough free water as the goal is 30-35 ml/kg/day. Floor time this am [id number] rounding, reviewing notes, reviewing ON care and 0700-08:00 talking with family in care conference. They have decided Hospice is the best course of action. Phone call 08:[address] Waters with [facility] placed personally. Total time spent this am was 90 minutes. Objective: Vitals: T=99.7 F, P=77, R=18, BP=98/55, IHO6=582 Constitutional: Appearance-Aphasic, asleep in bed, arms appear edematous, scrotum, legs and back edematous. eyes closed mouth agape and patient may have responded to command "squeeze hand" but did not respond to open eyes. Eyes manually opened and flashlight shown into eyes again and pupils did respond to direct and indirect light response. He did not avoid wisp of cotton on eyes and did not withdraw. Orientation- Aphasic. Posture- Hospital bed, head of bed elevated, NG tube left nare, mouth open, gurglng present. Prominent suction in wall suction. Build and Nutrition- He is on IV fluids and tube feedings. Integumentary: General-No visible rashes, ulcers or lesions. He does have heel pad boots in place. Bandaged and c/d/i. He has heel ulcer stage 2 treated with pressure precuations. Head/Neck: Head- normocephalic and atraumatic. Neck- without visible/palpable lumps or pulsations. Palpation- Did not withdraw to pain. NO obvious pain response. Eye: Pupils small, did respond to direct/indirect light. Did not follow. Upper and lower eyelids are normal. Unable to open eyes on own. ENMT: Pinna- normal without tenderness or erythema. External auditory canal Left- normal without erythema or discharge, no excessive cerumen. External auditory canal Right-normal without erythema or discharge, no excessive cerumen. TM left- Agarwal/pearly, normal light reflex and anatomy TM Right- Agarwal/ pearly, normal light reflex and anatomy Hearing Assessment-normal to conversational speech. Nose and sinus- No sinus tenderness along frontal/ maxillary region. External appearance normal and midline. Nares- erythematous, boggy, Oropharynx- nG tube in place left nare. CHEST/LUNG: Inspection- symmetric chest wall no pectus deformity. NC in place, breathing on own. Normal effort, no distress Auscultation- Breath sounds diminished and coarse throughout all lung cordoba. decreased tracheal sounds, bronchial sounds overlying sternum, Bronchovessicular sounds between scapulae posteriorly, vessicular breath sounds heard throughout periphery. Lungs are coarse prominent upper airway sounds radiate into periphery and lower sounds present too. Adventitious sounds- No wheezes, rales, rhonchi. CARDIOVASCULAR: Auscultation- Regular rate and rhythm. Distant. ABDOMEN: Inspection- normal and no visible pulsations. Normal contour. Auscultation- Bowel sounds present all 4 quadrants. no appreciable abdominal bruits. Palpation/Percussion- soft, non-tender, no rebound tenderness, no rigidity (guarding), no jar tenderness, no masses. Peripheral Vascular: Upper extremity Left- Normal temperature, edematous Appears edematous vs enlarged/obese. Upper extremity Right- Normal temperature, edematous Appears edematous vs enlarged/obese. Appears edematous vs enlarged/ obese. Lower extremity- Normal temperature with pink nailbeds and no ulcerations. Heel precuation boots in place. Musculoskeletal: Aphasic, unable to lift limbs against gravity. Neurological: Essentially non responsive to verbal/tactile stimuli. Did squeeze hand,maybe this am. More of a palmar grasp like reflex. Cranial nerves- unable to assess. Attempted. reflexes patelllar and biceps very faint bilaterally. Using safety pin, assessed withdraw/grimace. HE did not withdraw to safety pin. I do not think he grasped my hand on purpose. When fingers were extended he had reflex flexion. Some clonus about the wrist. Neuropsych: Aphasic, not following commands Lymphatic: Head/Neck- normal size and non tender to palpation. Axillary- normal size and non tender to palpation. Femoral and Inguinal- normal size and non tender to palpation. (1) Anemia Status: Acute Code(s): D64.9 - ANEMIA, UNSPECIFIED SNOMED Code(s): 383862239 (2) Hypokalemia Status: Acute Code(s): E87.6 - HYPOKALEMIA SNOMED Code(s): 49107229 (3) Hypocalcemia Status: Acute Code(s): E83.51 - HYPOCALCEMIA SNOMED Code(s): 7614145 (4) Alzheimer's dementia Status: Acute Code(s): G30.9 - ALZHEIMER'S DISEASE, UNSPECIFIED SNOMED Code( s): 06281415 (5) Thrombocytopenia Status: Acute Code(s): D69.6 - THROMBOCYTOPENIA, UNSPECIFIED SNOMED Code(s) : 103576138 (6) LOWELL (acute kidney injury) Status: Acute Code(s): N17.9 - ACUTE KIDNEY FAILURE, UNSPECIFIED SNOMED Code (s): 68286054 (7) CKD (chronic kidney disease) Status: Acute Code(s): N18.9 - CHRONIC KIDNEY DISEASE, UNSPECIFIED SNOMED Code(s): 479906011 (8) Fever Status: Acute Code(s): R50.9 - FEVER, UNSPECIFIED SNOMED Code(s): 145680843 (9) Oropharyngeal dysphagia Status: Acute Code(s): R13.12 - DYSPHAGIA, OROPHARYNGEAL PHASE SNOMED Code(s ): 03529274 (10) Pneumonia Status: Acute Code(s): J18.9 - PNEUMONIA, UNSPECIFIED ORGANISM SNOMED Code(s ): 289731286 (11) Aphasia Status: Acute Code(s): R47.01 - APHASIA SNOMED Code(s): 32059615 (12) Cognitive decline Status: Acute Code(s): F09 - UNSP MENTAL DISORDER DUE TO KNOWN PHYSIOLOGICAL CONDITION SNOMED Code(s): 806672252 Plan: Stan [employer] with [facility] came in at 5:50 PM and Stan son, J Luis son and Bonilla Naz in room 120 today. We discussed desires, we discussed wishes for family, we discussed options to stay at [facility], transfer to [facility] as they do not feel that HOme is an option. patient is somewhat more alert and active at this time opened eyes, moved hands, coughed and then returned back to eyes closed, mouth agape. I talked with Nurse with Hospice Dulce 10 minutes and relayed Dx, recent vitals. She then contacted network liaison Hospice provider. At 19:18 still in room Ernesto, son of patient and POA called and he gave personal wishes of patient and family to D/C NG tube. Stan with [facility] and I confirmed the wishes of the patient and family. We discussed pros/cons to removal of NG tube. Dulce with [facility] and I talked about the orders. He cannot swallow at present all meds were discontinued. Jevity discontinued. IV will be Saline locked. The patient and family are going to be transferred to [facility]. At direction of [facility] team all oral meds stopped. Transfer orders placed, patient to be transfered to hospice center.
[2017-05-23] MEDS ORDERED: ZESTRIL NG SCH (09:00)
[2017-05-23] MEDS ORDERED: MULTAQ NG SCH (09:00)
[2017-05-23] MEDS ORDERED: IMODIUM NG SCH (09:00)
--- NOTE | 2017-05-23 09:51 | DI ---
EXAM: Single AP view of the chest HISTORY: NG tube placement. COMPARISON: Chest x-ray 05/20/2017 and numerous priors FINDINGS: The cardiomediastinal silhouette is enlarged. The left-sided pacer and lead wire is unchan ged. NG tube demonstrates the tip in the left upper quadrant. There is no pneumothorax or pleural e ffusion. There is no focal consolidation, nodule or mass. Minimal ground-glass noted in the bilater al lungs is relatively unchanged. The osseous structures are unchanged. IMPRESSION: 1. NG tube with the tip in the left upper quadrant likely in the gastric body. 2. Minimal patchy ground-glass opacities in the bilateral lungs may represent mild vascular congesti on versus airway thickening with mild cardiomegaly.
[2017-05-23] MEDS: LOPRESSOR NG SCH (10:25)
[2017-05-23] MEDS: MUCINEX NG SCH (10:25)
[2017-05-23] MEDS: PROTONIX IV IVP SCH (10:26)
[2017-05-23] MEDS: VANCOMYCIN 500 MG in SODIUM CHLORIDE 100 ML IV SCH (10:28)
[2017-05-23] MEDS: BACTROBAN TP SCH (10:28)
[2017-05-23 17:52] VITALS: BP 106/61; TEMP 99.5
--- NOTE | 2017-05-23 19:37 | PCM.DC ---
Final Diagnosis: All Active Problems Aspiration Pneumonia Dementia LOWELL (acute kidney injury) (Acute) Alzheimer's dementia (Acute) Anemia (Acute) Aphasia (Acute) CKD (chronic kidney disease) (Acute) Cognitive decline (Acute) Hypocalcemia (Acute) Hypokalemia (Acute) Thrombocytopenia (Acute) Fever (Acute) Oropharyngeal dysphagia (Acute) Pneumonia (Acute) Hypomagnesemia. Hospice Admission (1) Anemia Status: Acute Code(s): D64.9 - ANEMIA, UNSPECIFIED SNOMED Code(s): 982071988 Qualifiers: Anemia type: unspecified type Qualified Code(s): D64.9 - Anemia, unspecified (2) Hypokalemia Status: Acute Code(s): E87.6 - HYPOKALEMIA SNOMED Code(s): 39397210 (3) Hypocalcemia Status: Acute Code(s): E83.51 - HYPOCALCEMIA SNOMED Code(s): 5393270 (4) Alzheimer's dementia Status: Acute Code(s): G30.9 - ALZHEIMER'S DISEASE, UNSPECIFIED SNOMED Code( s): 37091810 (5) Thrombocytopenia Status: Acute Code(s): D69.6 - THROMBOCYTOPENIA, UNSPECIFIED SNOMED Code(s) : 957572705 (6) LOWELL (acute kidney injury) Status: Acute Code(s): N17.9 - ACUTE KIDNEY FAILURE, UNSPECIFIED SNOMED Code (s): 69081129 (7) CKD (chronic kidney disease) Status: Acute Code(s): N18.9 - CHRONIC KIDNEY DISEASE, UNSPECIFIED SNOMED Code(s): 293238991 (8) Fever Status: Acute Code(s): R50.9 - FEVER, UNSPECIFIED SNOMED Code(s): 128689758 (9) Oropharyngeal dysphagia Status: Acute Code(s): R13.12 - DYSPHAGIA, OROPHARYNGEAL PHASE SNOMED Code(s ): 11225536 (10) Pneumonia Status: Acute Code(s): J18.9 - PNEUMONIA, UNSPECIFIED ORGANISM SNOMED Code(s ): 003916317 Qualifiers: Pneumonia type: due to unspecified organism Laterality: right Lung location: lower lobe of lung Qualified Code(s): J18.1 - Lobar pneumonia, unspecified organism (11) Aphasia Status: Acute Code(s): R47.01 - APHASIA SNOMED Code(s): 99347154 (12) Cognitive decline Status: Acute Code(s): F09 - UNSP MENTAL DISORDER DUE TO KNOWN PHYSIOLOGICAL CONDITION SNOMED Code(s): 531217733 (13) Hospice care patient Status: Acute (14) Hypophosphatemia Status: Acute Code(s): E83.39 - OTHER DISORDERS OF PHOSPHORUS METABOLISM SNOMED Code(s): 2441893 Reason for Hospitalization: Patient had Aspiration pneumonia hospitalized on 05/08/17 please see my H+P and progress note 05/23/17 for details. Entire hospitalization history summarized. Prognosis at Discharge: Hospice Condition at Discharge: Stable for transport to Hospice Center, NG removed per family wishes. Saline lock, all oral meds held per hospice team. Medications at Discharge: Ambulatory Orders Medication Instructions Recorded Acetaminophen [Tylenol] 650 mg PO Q4H PRN 05/08/17 Donepezil HCl [Aricept] 10 mg PO DAILY 05/08/17 Dronedarone HCl [Multaq] 400 mg PO DAILY 05/08/17 Lisinopril [Zestril] 10 mg PO DAILY 05/08/17 Loperamide HCl [Loperamide] 2 mg PO DAILY 05/08/17 Memantine HCl [Namenda] 10 mg PO BID 05/08/17 Metoprolol Tartrate [Lopressor] 50 mg PO BID 05/08/17 Mupirocin [Bactroban Ointment 1 1 gm TP BID 05/08/17 Gram Applicator (ER)] Potassium Chloride 20 meq PO DAILY 05/08/17 Pravastatin Sodium [Pravachol] 20 mg PO DAILY 05/08/17 Lab/Diagnostics: Laboratory Last Values WBC 7.06 K/ul (4.2-10.2) D 05/22/17 04:45 RBC 3.16 10^6/ul (4.70-6.10) L 05/22/17 04:45 Hgb 8.4 g/dl (14.0-18.0) L 05/22/17 04:45 Hct 26.1 % (42.0-52.0) L D 05/22/17 04:45 MCV 82.6 fl (80.0-94.0) 05/22/17 04:45 MCH 26.6 pg (27.0-31.0) L 05/22/17 04:45 MCHC 32.2 (31.8-35.4) 05/22/17 04:45 RDW Coeff of Juan 16.5 % (11.6-14.8) H 05/22/17 04:45 Plt Count 130 10^3/uL (140-440) L D 05/22/17 04:45 Immature Gran % (Auto) 0.3 % (0.0-5.0) 05/22/17 04:45 Neut % (Auto) 75.1 05/22/17 04:45 Lymph % (Auto) 9.5 (10.0-50.0) L 05/22/17 04:45 [place] % (Auto) 11.2 (0-10) H 05/22/17 04:45 Eos % (Auto) 3.5 % (0.0-7.0) 05/22/17 04:45 Baso % (Auto) 0.4 % (0.0-3.0) 05/22/17 04:45 Immature Gran # (Auto) 0.0 (0.0-1.0) 05/22/17 04:45 Neut # (Auto) 5.3 K/ul (2.0-6.9) 05/22/17 04:45 Lymph # (Auto) 0.7 K/uL (0.60-3.4) 05/22/17 04:45 [place] # (Auto) 0.8 K/uL (0.4-2.0) 05/22/17 04:45 Eos # (Auto) 0.3 K/ul (0.0-0.7) 05/22/17 04:45 Baso # (Auto) 0.0 K/uL (0-0.2) 05/22/17 04:45 Sodium 143 mmol/L (136-145) 05/22/17 04:45 Potassium 3.1 mmol/L (3.5-5.1) L 05/22/17 04:45 Chloride 111 mmol/L (98-107) H 05/22/17 04:45 Carbon Dioxide 24 mmol/L (23-31) 05/22/17 04:45 Anion Gap 11.1 05/22/17 04:45 BUN 23 mg/dL (7-18) H 05/22/17 04:45 Creatinine 1.28 mg/dL (0.60-1.10) H 05/22/17 04:45 Estimated GFR (MDRD) 54.00 mL/min 05/22/17 04:45 BUN/Creatinine Ratio 17.96 05/22/17 04:45 Glucose 152 mg/dL (82-115) H 05/22/17 04:45 Calcium 7.8 mg/dL (8.2-10.2) L 05/22/17 04:45 Phosphorus 1.4 mg/dL (2.3-3.7) L 05/23/17 04:30 Magnesium 1.7 mg/dL (1.7-2.2) 05/23/17 04:30 Total Bilirubin 0.4 mg/dL (0.00-1.20) 05/22/17 04:45 AST 16 U/L (15-37) 05/22/17 04:45 ALT 9 U/L (12-78) L 05/22/17 04:45 Alkaline Phosphatase 46 U/L (56-119) L 05/22/17 04:45 Total Protein 5.2 g/dL (5.8-8.1) L 05/22/17 04:45 Albumin 1.8 g/dL (3.4-5.0) L 05/22/17 04:45 Globulin 3.4 05/22/17 04:45 Albumin/Globulin Ratio 0.53 05/22/17 04:45 Vitamin B12 487 pg/mL (213-816) 05/23/17 04:30 Urine Color Yellow (YELLOW) 05/21/17 23:30 Urine Clarity Cloudy (CLEAR) 05/21/17 23:30 Urine pH 5.0 (5-9) 05/21/17 23:30 Ur Specific [place] 1.020 (1.005-1.030) 05/21/17 23:30 Urine Protein 2+ (NEGATIVE) 05/21/17 23:30 Urine Glucose (UA) Negative (NEGATIVE) 05/21/17 23:30 Urine Ketones Negative (NEGATIVE) 05/21/17 23:30 Urine Blood 2+ (NEGATIVE) 05/21/17 23:30 Urine Nitrite Negative (NEGATIVE) 05/21/17 23:30 Urine Bilirubin Negative (NEGATIVE) 05/21/17 23:30 Urine Urobilinogen 0.2 (0.2) 05/21/17 23:30 Ur Leukocyte Esterase 1+ (NEGATIVE) 05/21/17 23:30 Urine Microscopic RBC 5-10 (0-2) 05/21/17 23:30 Urine Microscopic WBC 5-10 (0-2) 05/21/17 23:30 Ur Squamous Epith Cells Not present (0-5) 05/21/17 23:30 Amorphous Sediment Trace (NOT PRESENT) 05/21/17 23:30 Urine Bacteria 1+ (NOT PRESENT) 05/21/17 23:30 Urine Yeast 2+ (NOT PRESENT) 05/21/17 23:30 Vancomycin Trough 16.87 ug/mL (10.00-20.00) 05/22/17 09:25 Last values listed. Please see H+P from 05/22/17 for full summary of labs and diagnostics. Education Provided to Patient and Family: 1. Stan Isabellain with Hospice and I explained transfer r/B/A. Family wishes to have non emergency transport to [facility]. 2. Ambulance contacted. 3. Family present in room, Ernesto PARRISH son contacted on phone on speakerphone. Discussed d/c NG means no nutrition, no ability to drink water as he cannot swallow. They are aware patient is comfort care only, they agreed that patient would want no NG tube. NG tube was removed with witness 3x from family, [facility] and myself. 4. Transfer R/B/A d/w family. He is stable in my opinion to transfer as not on ventilator, Saline/lines can be locked and he can be transferred. Road related concerns cannot be known but are still possible. 5. Please see H+P for summary of entirety of care and progress note today detailing family conference this am and decision for hospice care. Follow-ups: [facility]. Disposition: TSF OTHER Hospital Course: For a formal summary of the hospital stay, please see progress note dated . This detailed care coordination, care/family conference from today. Please see H+P for admit into TCU from 05/22/17 summarzing hospital stay up until . I tried to summarize as best as I could with family at meeting this am. Plan: Transfer patient to [facility]. D/c from hospital 4/12/18. I did have to place order for NG today to be able to D/C the NG. Oral meds held. Lines locked. Patient to be transferred by ambulance non emergent to [facility]. Family wishes reviewed, Ernesto PARRISH, son Stan and Son J Luis present today. Family conference this am 7-8 am. Another from 1800 pm until 19:50 tonight at completion of this transfer d/c summary.
== END 2017-05-23 20:10 | disposition short-term general hospital (02) | DRG 178 ==
LOC: MEDSURG B 14:01
PROVIDERS: ADMIT Family Medicine; ATTEND Family Medicine
DX: J69.0 Pneumonitis due to inhalation of food and vomit (principal); N17.9 Acute kidney failure, unspecified; R47.01 Aphasia; G30.9 Alzheimer's disease, unspecified; R13.12 Dysphagia, oropharyngeal phase; N18.9 Chronic kidney disease, unspecified; G30.1 Alzheimer's disease with late onset; F02.80 Dementia in other diseases classified elsewhere, unspecified severity, without behavioral disturbance, psychotic disturbance, mood disturbance, and anxiety; L89.612 Pressure ulcer of right heel, stage 2; D64.9 Anemia, unspecified; E83.51 Hypocalcemia; E87.6 Hypokalemia; E83.42 Hypomagnesemia; E83.39 Other disorders of phosphorus metabolism; D69.6 Thrombocytopenia, unspecified; R50.9 Fever, unspecified; F09 Unspecified mental disorder due to known physiological condition; Z95.0 Presence of cardiac pacemaker; Z79.899 Other long term (current) drug therapy
CPT/HCPCS: 36415; 80053; 80202; 81001; 82607; 83735; 84100; 84425; 84630; 85025; 87040; 87086; 94640; 97802; 99306; 99316; 99356; 99357

== ENCOUNTER 2017-05-23 20:21 | Outpatient (CLI) | END 2017-05-23 20:22 | disposition hospice, inpatient (51) | LOC: AMBL 20:21 | PROVIDERS: ATTEND Internal Medicine Geriatric Medicine | DX: R53.1 Weakness (principal); R41.82 Altered mental status, unspecified ==